=== PATIENT | male | born 1960 | race Caucasian/White ===

== ENCOUNTER 2017-04-09 13:38 | Emergency (ER) | payer OTHER, MEDICAID ==
[2017-04-09 13:46] VITALS: TEMP 98.1
[2017-04-09] MEDS ORDERED: ONDANSETRON 4 MG/2 ML VIAL IVP ONE (13:50)
[2017-04-09] MEDS ORDERED: ONDANSETRON 4 MG/2 ML VIAL ONE (13:50)
[2017-04-09] MEDS ORDERED: NS 1,000 ML IV ONE ×2 (13:50→14:34)
[2017-04-09] MEDS ORDERED: HYDROmorphONE/DILAUDID 1 MG/ML SYR ONE (13:50)
[2017-04-09] MEDS ORDERED: fentaNYL 100 MCG/2 ML INJ IVP ONE (13:50)
--- NOTE | 2017-04-09 13:51 | EDPHY ---
H & P Time Seen by Provider: 04/09/17 13:40 HPI/ROS: CHIEF COMPLAINT: Right abdominal and flank pain HISTORY OF PRESENT ILLNESS: Patient had severe pain starting around 11:00 a.m.. He was seen in the clinic and then was sent to CT imaging and subsequently presents here with severe pain. He states that he thought "I was not going to make it." Patient presents with severe right abdominal pain radiating to his flank with a history of dysuria and pain in his penis for the past 2 weeks. Not associated with trauma or recent fall or injury. No vomiting or diarrhea. Not better or worse with position. REVIEW OF SYSTEMS: Eye: no change in vision ENT: no sore throat Cardiac: no chest pain or syncope Pulmonary: no cough or SOB Abdomen: HPI Musculoskeletal: No recent trauma, no extremity pain. Skin: Very diaphoretic Neuro: no headache Constitutional: no fever : HPI A comprehensive 10 point review of systems is otherwise negative aside from elements mentioned in the history of present illness. PAST MEDICAL HISTORY: Depression, bipolar, renal colic Social history: [facility] patient, primary care is [facility] General Appearance: Alert, standing and moving by the bedside, looks uncomfortable. Eyes: No scleral icterus. ENT, Mouth: Normal mucous membranes. Respiratory: Normal respiratory effort, breath sounds equal, lungs are clear to auscultation. Cardiovascular: Regular rate and rhythm. Gastrointestinal: Abdomen is soft and non tender. No pulsatile masses, male is normal. No hernia. Neurological: Alert and oriented x3. Normally conversant. Face symmetric, normal movement and sensation in all extremities. Skin: Diaphoretic Musculoskeletal: No peripheral edema and no joint swelling. Psychiatric: Not agitated. Emergency Department course/MDM: I-STAT, fentanyl 100 mcg IV and Zofran 4 mg IV, Toradol if normal creatinine. 1430: Imaging disc not available but faxed report reviewed by myself at this time shows "4 mm obstructing calculus. In the distal right ureter with mild right-sided hydroureter" . 1500: Improved, still having pain, Toradol and IV lidocaine. 1605: Improving, less pain. 1735: Re-evaluated. Feels better, feels stable for discharge. Smoking Status: Never smoked Constitutional: Initial Vital Signs Temperature (C) 36.7 C 04/09/17 13:40 Heart Rate 58 L 04/09/17 13:40 Respiratory Rate 20 04/09/17 13:40 Blood Pressure 144/94 H 04/09/17 13:40 O2 Sat (%) 95 04/09/17 13:40 O2 Delivery Mode Room Air O2 (L/minute) 2 Allergies/Adverse Reactions: lithium [[place]] Allergy (Mild, Verified 04/09/17 13:44) Penicillins Allergy (Unknown, Verified 04/09/17 13:44) as child Home Medications: Medication Instructions Recorded lamoTRIgine [LamICTAL 100 MG (RX)] 200 mg PO 01/20/13 Antidepressant Patch 04/09/17 oxyCODONE/APAP 5/325 [Percocet] 1 - 2 tab PO Q4-6PRN PRN #11 tab 04/09/17 Medical Decision Making Differential Diagnosis: Differential considered including but not limited to UTI, renal colic, aortic aneurysm, appendicitis. - Data Points Laboratory Results: 04/09/17 04/09/17 16:10 14:24 POC Hgb 13.9 gm/dL gm/dL (13.7-17.5) POC Hct 41 % % (40-51) POC Sodium 143 mEq/L mEq/L (134-144) POC Potassium 4.0 mEq/L mEq/L (3.3-5.0) POC Chloride 108 mEq/L mEq/L (97-110) POC BUN 9 mg/dL mg/dL (7-23) POC Creatinine 1.3 mg/dL mg/dL (0.7-1.3) POC Glucose 140 mg/dL H mg/dL (70-100) Urine RBC 10-15 /hpf H /hpf (0-3) Urine WBC 10-15 /hpf H /hpf (0-3) Ur Epithelial Cells NONE SEEN /lpf /lpf (NONE-1+) Calcium Oxalate Crystal PRESENT /hpf /hpf (NONE-1+) Urine Bacteria NONE SEEN /hpf /hpf (NONE SEEN) Urine Mucus TRACE /lpf /lpf (NONE-1+) Urine Yeast NONE SEEN /hpf /hpf (NONE SEEN) Medications Given: Discontinued Medications Fentanyl (Sublimaze) 100 mcg IVP EDNOW ONE Stop: 04/09/17 13:51 Last Admin: 04/09/17 14:36 Dose: Not Given Hydromorphone HCl (Dilaudid) 1 mg IVP EDNOW ONE Stop: 04/09/17 14:08 Last Admin: 04/09/17 14:23 Dose: 1 mg Sodium Chloride (Ns) 1,000 mls @ 0 mls/hr IV ONCE ONE; Wide Open PRN Reason: Protocol Stop: 04/09/17 13:51 Last Admin: 04/09/17 14:23 Dose: 1,000 mls Sodium Chloride (Ns) 1,000 mls @ 0 mls/hr IV ONCE ONE; Wide Open PRN Reason: Protocol Stop: 04/09/17 14:35 Last Admin: 04/09/17 15:01 Dose: 1,000 mls Lidocaine HCl 100 mg/ Sodium (Chloride) 110 mls @ 600 mls/hr IV EDNOW ONE Stop: 04/09/17 14:44 Last Admin: 04/09/17 15:01 Dose: 110 mls Ketorolac Tromethamine (Toradol) 30 mg IVP EDNOW ONE Stop: 04/09/17 14:35 Last Admin: 04/09/17 14:59 Dose: 30 mg Ondansetron HCl (Zofran) 4 mg IVP EDNOW ONE Stop: 04/09/17 13:51 Last Admin: 04/09/17 14:23 Dose: 4 mg Point of Care Test Results: 04/09/17 14:24 POC Sodium 143 POC Potassium 4.0 POC Chloride 108 POC BUN 9 POC Creatinine 1.3 POC Glucose 140 H Departure - Departure Disposition: Home, Routine, Self-Care Clinical Impression: Renal colic on right side Condition: Good Instructions: Renal Colic (ED) Additional Instructions: Ibuprofen 600 mg by mouth every 6 hours as needed for pain over the next 3 days. Please follow-up with your primary care clinic early next week. Return for pain not controlled by home medications. Referrals: Renee Fink MD [Primary Care Provider] - As per Instructions Prescriptions: oxyCODONE/APAP 5/325 [Percocet] 1 - 2 tab PO Q4-6PRN PRN #11 tab PRN Reason: Pain
[2017-04-09] MEDS ORDERED: HYDROmorphONE/DILAUDID 1 MG/ML SYR IVP ONE (14:07)
[2017-04-09] MEDS ORDERED: LIDOCAINE 1% 100 MG in NS 100 ML IV ONE (14:34)
[2017-04-09] MEDS ORDERED: KETOROLAC 30 MG/1 ML SDV IVP ONE (14:34)
[2017-04-09 16:30] LABS: BACTERIA NONE SEEN /hpf (NONE SEEN); MUCUS TRACE /lpf (NONE-1+); YEAST NONE SEEN /hpf (NONE SEEN)
[2017-04-09 17:50] VITALS: BP 136/88; PULSE 60; RESP 18; O2SAT 93
== END 2017-04-09 17:51 | disposition home or self-care (01) ==
DX: N23 Unspecified renal colic (principal)
CPT/HCPCS: 96361; 96374; 96375; 99284; J1170; J1885; J2405; 82947-QW

== ENCOUNTER 2017-04-09 18:43 | Observation (INO) | payer OTHER, MEDICAID ==
--- NOTE | 2017-04-09 19:05 | EDPHY ---
H & P Time Seen by Provider: 04/09/17 18:45 HPI/ROS: CHIEF COMPLAINT: Right abdominal and flank pain HISTORY OF PRESENT ILLNESS: Patient had severe pain starting around 11:00 a.m.. He was seen in the clinic and then was sent to CT imaging and subsequently presents here with severe pain. He states that he thought "I was not going to make it." Patient presents with severe right abdominal pain radiating to his flank with a history of dysuria and pain in his penis for the past 2 weeks. Not associated with trauma or recent fall or injury. No vomiting or diarrhea. Not better or worse with position. He was treated in the emergency department earlier today by myself and discharged feeling a lot better with no pain. About 30 minutes prior to my evaluation this time he started having pain in the same side on the right identical to previous. I-STAT creatinine was 1.3 and urinalysis showed 10-15 RBC and 10-15 WBC. REVIEW OF SYSTEMS: Eye: no change in vision ENT: no sore throat Cardiac: no chest pain or syncope Pulmonary: no cough or SOB Abdomen: HPI Musculoskeletal: No recent trauma, no extremity pain. Skin: Very diaphoretic Neuro: no headache Constitutional: no fever : HPI A comprehensive 10 point review of systems is otherwise negative aside from elements mentioned in the history of present illness. PAST MEDICAL HISTORY: Depression, bipolar, renal colic Social history: [facility] patient, primary care is [facility] General Appearance: Alert, lying down, uncomfortable. Eyes: No scleral icterus. ENT, Mouth: Normal mucous membranes. Respiratory: Normal respiratory effort, breath sounds equal, lungs are clear to auscultation. Cardiovascular: Regular rate and rhythm. Gastrointestinal: Abdomen is soft and non tender. No pulsatile masses, male is normal. No hernia. Neurological: Alert and oriented x3. Normally conversant. Face symmetric, normal movement and sensation in all extremities. Skin: Diaphoretic Musculoskeletal: No peripheral edema and no joint swelling. Psychiatric: Not agitated. Emergency Department course/MDM: Patient received Toradol and IV lidocaine and Dilaudid in his earlier visit. Dilaudid 0.5 mg IV, Ativan 1 mg IV. Normal saline 1000 mL is, Tylenol 1 g. Likely need to be admitted for pain control with recurrent pain from renal colic not adequately treated as outpatient Smoking Status: Never smoked Constitutional: Initial Vital Signs Temperature (C) 36.9 C 04/09/17 18:45 Heart Rate 62 04/09/17 18:45 Respiratory Rate 16 04/09/17 18:45 Blood Pressure 158/102 H 04/09/17 18:45 O2 Sat (%) 97 04/09/17 18:45 O2 Delivery Mode Room Air Allergies/Adverse Reactions: lithium [[place]] Allergy (Mild, Verified 04/09/17 18:44) Penicillins Allergy (Unknown, Verified 04/09/17 18:44) as child Home Medications: Medication Instructions Recorded lamoTRIgine [LamICTAL 100 MG (RX)] 200 mg PO 01/20/13 Antidepressant Patch 04/09/17 oxyCODONE/APAP 5/325 [Percocet] 1 - 2 tab PO Q4-6PRN PRN #11 tab 04/09/17 Medical Decision Making Differential Diagnosis: Differential considered including but not limited to renal colic, appendicitis, sbo, aneurysm or dissection. - Data Points Laboratory Results: Laboratory Results 04/09/17 19:34 04/09/17 19:34 04/09/17 04/09/17 19:34 19:34 WBC 10.81 10^3/uL H 10^3/uL (3.80-9.50) RBC 4.09 10^6/uL L 10^6/uL (4.40-6.38) Hgb 12.7 g/dL L g/dL (13.7-17.5) Hct 37.1 % L % (40.0-51.0) MCV 90.7 fL fL (81.5-99.8) MCH 31.1 pg pg (27.9-34.1) MCHC 34.2 g/dL g/dL (32.4-36.7) RDW 15.4 % H % (11.5-15.2) Plt Count 175 10^3/uL 10^3/uL (150-400) MPV 10.0 fL fL (8.7-11.7) Neut % (Auto) 82.1 % H % (39.3-74.2) Lymph % (Auto) 10.2 % L % (15.0-45.0) [place] % (Auto) 6.2 % % (4.5-13.0) Eos % (Auto) 0.6 % % (0.6-7.6) Baso % (Auto) 0.4 % % (0.3-1.7) Nucleat RBC Rel Count 0.3 % H % (0.0-0.2) Absolute Neuts (auto) 8.89 10^3/uL H 10^3/uL (1.70-6.50) Absolute Lymphs (auto) 1.10 10^3/uL 10^3/uL (1.00-3.00) Absolute Monos (auto) 0.67 10^3/uL 10^3/uL (0.30-0.80) Absolute Eos (auto) 0.06 10^3/uL 10^3/uL (0.03-0.40) Absolute Basos (auto) 0.04 10^3/uL 10^3/uL (0.02-0.10) Absolute Nucleated RBC 0.03 10^3/uL H 10^3/uL (0-0.01) Immature Gran % 0.5 % % (0.0-1.1) Immature Gran # 0.05 10^3/uL 10^3/uL (0.00-0.10) Sodium 139 mEq/L mEq/L (134-144) Potassium 5.0 mEq/L mEq/L (3.5-5.2) Chloride 109 mEq/L mEq/L (97-110) Carbon Dioxide 20 mEq/l L mEq/l (22-31) Anion Gap 10 mEq/L mEq/L (8-16) BUN 9 mg/dL mg/dL (7-23) Creatinine 1.1 mg/dL mg/dL (0.7-1.3) Estimated GFR > 60 Glucose 108 mg/dL H mg/dL (70-100) Calcium 8.9 mg/dL mg/dL (8.5-10.4) Medications Given: Discontinued Medications Acetaminophen (Tylenol) 975 mg PO EDNOW ONE Stop: 04/09/17 19:07 Last Admin: 04/09/17 19:36 Dose: 975 mg Hydromorphone HCl (Dilaudid) 0.5 mg IVP EDNOW ONE Stop: 04/09/17 19:07 Last Admin: 04/09/17 19:36 Dose: 0.5 mg Hydromorphone HCl (Dilaudid) 1 mg PO EDNOW ONE Stop: 04/09/17 20:14 Last Admin: 04/09/17 20:23 Dose: 1 mg Sodium Chloride (Ns) 1,000 mls @ 0 mls/hr IV ONCE ONE; Wide Open PRN Reason: Protocol Stop: 04/09/17 19:07 Last Admin: 04/09/17 19:36 Dose: 1,000 mls Lorazepam (Ativan Injection) 1 mg IVP EDNOW ONE Stop: 04/09/17 19:07 Last Admin: 04/09/17 19:36 Dose: 1 mg Departure - Departure Disposition: [facility] Inpatient Acute Clinical Impression: Renal colic on right side Condition: Good
[2017-04-09] MEDS ORDERED: NS 1,000 ML IV ONE (19:06)
[2017-04-09] MEDS ORDERED: ACETAMINOPHEN 325 MG TAB PO ONE (19:06)
[2017-04-09] MEDS ORDERED: HYDROmorphONE/DILAUDID 1 MG/ML SYR IVP ONE (19:06)
[2017-04-09] MEDS ORDERED: LORazepam 2 MG/ML INJ IVP ONE (19:06)
[2017-04-09 19:40] LABS: % IMMATURE GRANULYOCYTES 0.5 % (0.0-1.1); ABSOLUTE IMMATURE GRANULOCYTES 0.05 10^3/uL (0.00-0.10); ABSOLUTE NRBC COUNT 0.03 10^3/uL (0-0.01); ADD DIFF? NO; ADD MORPH? NO; ADD SCAN? NO; ATYPICAL LYMPHOCYTE FLAG 0 (0-99); FRAGMENT RBC FLAG 0 (0-99); HEMATOCRIT 37.1 % (40.0-51.0); HEMOGLOBIN 12.7 g/dL (13.7-17.5); LEFT SHIFT FLG 10 (0-99); LIPEMIA HEMOLYSIS FLAG 90 (0-99); MEAN CELL HEMOGLOBIN 31.1 pg (27.9-34.1); MEAN CELL HEMOGLOBIN CONCENTR. 34.2 g/dL (32.4-36.7); MEAN CELL VOLUME 90.7 fL (81.5-99.8); NRBC-AUTO% 0.3 % (0.0-0.2); PLATELET CLUMPS FLAG 10 (0-99); PLATELET COUNT 175 10^3/uL (150-400); RED BLOOD CELL COUNT 4.09 10^6/uL (4.40-6.38); RED CELL DISTRIBUTION WIDTH 15.4 % (11.5-15.2)
[2017-04-09 19:52] LABS: ANION GAP 10 mEq/L (8-16); CALCIUM 8.9 mg/dL (8.5-10.4); CARBON DIOXIDE 20 mEq/l (22-31); CHLORIDE 109 mEq/L (97-110); CREATININE 1.1 mg/dL (0.7-1.3); GLOMERULAR FILTRATION RATE > 60; GLUCOSE 108 mg/dL (70-100); SODIUM 139 mEq/L (134-144)
[2017-04-09] MEDS ORDERED: HYDROmorphONE/DILAUDID 2 MG TAB PO ONE (20:13)
[2017-04-09] MEDS ORDERED: HYDROmorphONE/DILAUDID 1 MG/ML SYR IVP PRN (22:24)
[2017-04-09] MEDS ORDERED: LORazepam 0.5 MG TAB PO PRN (22:24)
[2017-04-09] MEDS ORDERED: oxyCODONE IR 5 MG TAB PO PRN (22:24)
--- NOTE | 2017-04-09 22:36 | PDGENHP ---
History and Physical - Chief Complaint R flank pain - History of Present Illness Patient is a 48-year-old male with a history of bipolar/depression disorder, previous nephrolithiasis requiring lithotripsy who presents to the ED with complaint of right flank pain. Patient states his symptoms began last night with mild intermittent right-sided discomfort that interrupted his ability to sleep through the night. This morning the pain had begun to intensify began was waxing and waning, up to 5/10 in intensity. While at work, he began to experience worsening right flank pain, called his PMD office and was evaluated in the walk-in [facility]. while in the clinic, he had intense 8 to 10/[address] of the abdomen and pelvis was obtained and revealed right ureteral stone. Given the intensity of his symptoms, he was sent to the ED for further evaluation at around 1:30 p.m. he was given symptomatic treatment of his pain with significant improvement of his symptoms and then discharged home. However on arrival home, patient's pain again intensified and he decided to come back to the ED for further evaluation. Throughout this course, patient denies any obvious fevers, chills although he does report intermittent nausea when the pain intensifies. He also states for the past 2 weeks he has been having symptoms of incomplete voiding and dysuria at and avoid but no obvious hematuria. Patient reports around 2002 he had similar symptoms, with intense flank pain, and was determined to have and obstructing renal stone. He states he was hospitalized at that time and underwent lithotripsy with ureteral stent placement. On arrival to the ED this evening, patient was afebrile hemodynamically stable. Labs revealed mild leukocytosis, normal BMP. He was given symptom control and then admitted to the hospitalist service for further management. History Information - Allergies/Home Medication List Allergies/Adverse Reactions: lithium [[place]] Allergy (Mild, Verified 04/09/17 18:44) Penicillins Allergy (Unknown, Verified 04/09/17 18:44) as child Home Medications: lamoTRIgine [LamICTAL 100 MG (RX)] 200 mg PO 01/20/13 [Last Taken Unknown] Antidepressant Patch 04/09/17 [Last Taken Unknown] I have personally reviewed and updated: family history, medical history, social history, surgical history - Past Medical History Additional medical history: Bipolar disorder. depression. history of nephrolithiasis (2002) - Surgical History Additional surgical history: Lithotripsy. cholecystectomy. knee arthroscopy. rotator cuff. hypospadia correction - Family History Positive for: non-pertinent - Social History Smoking Status: Never smoked Alcohol Use: Rarely Drug Use: None Additional social history: patient lives alone, is independent in ADLs, works as a courrier Review of Systems ROS: 10pt was reviewed & negative except for what was stated in HPI & below Physical Exam Temp Pulse Resp BP Pulse Ox 36.9 C 70 14 129/80 H 94 04/09/17 20:48 04/09/17 20:48 04/09/17 20:48 04/09/17 20:48 04/09/17 20:48 Constitutional: no apparent distress, appears nourished, not in pain Eyes: PERRL, anicteric sclera, EOMI Ears, Nose, Mouth, Throat: moist mucous membranes, hearing normal, ears appear normal, no oral mucosal ulcers Cardiovascular: regular rate and rhythym, no murmur, rub, or gallop, pulses symmetric bilaterally, No JVD, No edema Peripheral Pulses: 2+: dorsalis-pedis (R), dorsalis-pedis (L) Respiratory: no respiratory distress, no rales or rhonchi, clear to auscultation Gastrointestinal: normoactive bowel sounds, soft, non-tender abdomen, no palpable masses, No guarding, No rebound, No distension Genitourinary: no bladder fullness, no bladder tenderness Skin: warm, normal color, no rashes or abrasions, no fluctuance, no induration, No mottled Musculoskeletal: full muscle strength, no muscle tenderness, normal joint ROM, no joint effusions Neurologic: AAOx3, sensation intact bilaterally, CN II-XII Intact, No weakness, No numbness, No facial droop Psychiatric: interacting appropriately, not anxious, not encephalopathic, thought process linear Lab Data & Imaging Review 04/09/17 19:34 04/09/17 19:34 WBC 10.81 10^3/uL (3.80-9.50) H 04/09/17 19:34 RBC 4.09 10^6/uL (4.40-6.38) L 04/09/17 19:34 Hgb 12.7 g/dL (13.7-17.5) L 04/09/17 19:34 Hct 37.1 % (40.0-51.0) L 04/09/17 19:34 MCV 90.7 fL (81.5-99.8) 04/09/17 19:34 MCH 31.1 pg (27.9-34.1) 04/09/17 19:34 MCHC 34.2 g/dL (32.4-36.7) 04/09/17 19:34 RDW 15.4 % (11.5-15.2) H 04/09/17 19:34 Plt Count 175 10^3/uL (150-400) 04/09/17 19:34 MPV 10.0 fL (8.7-11.7) 04/09/17 19:34 Neut % (Auto) 82.1 % (39.3-74.2) H 04/09/17 19:34 Lymph % (Auto) 10.2 % (15.0-45.0) L 04/09/17 19:34 [place] % (Auto) 6.2 % (4.5-13.0) 04/09/17 19:34 Eos % (Auto) 0.6 % (0.6-7.6) 04/09/17 19:34 Baso % (Auto) 0.4 % (0.3-1.7) 04/09/17 19:34 Nucleat RBC Rel Count 0.3 % (0.0-0.2) H 04/09/17 19:34 Absolute Neuts (auto) 8.89 10^3/uL (1.70-6.50) H 04/09/17 19:34 Absolute Lymphs (auto) 1.10 10^3/uL (1.00-3.00) 04/09/17 19:34 Absolute Monos (auto) 0.67 10^3/uL (0.30-0.80) 04/09/17 19:34 Absolute Eos (auto) 0.06 10^3/uL (0.03-0.40) 04/09/17 19:34 Absolute Basos (auto) 0.04 10^3/uL (0.02-0.10) 04/09/17 19:34 Absolute Nucleated RBC 0.03 10^3/uL (0-0.01) H 04/09/17 19:34 Immature Gran % 0.5 % (0.0-1.1) 04/09/17 19:34 Immature Gran # 0.05 10^3/uL (0.00-0.10) 04/09/17 19:34 Sodium 139 mEq/L (134-144) 04/09/17 19:34 Potassium 5.0 mEq/L (3.5-5.2) 04/09/17 19:34 Chloride 109 mEq/L (97-110) 04/09/17 19:34 Carbon Dioxide 20 mEq/l (22-31) L 04/09/17 19:34 Anion Gap 10 mEq/L (8-16) 04/09/17 19:34 BUN 9 mg/dL (7-23) 04/09/17 19:34 Creatinine 1.1 mg/dL (0.7-1.3) 04/09/17 19:34 Estimated GFR > 60 04/09/17 19:34 Glucose 108 mg/dL (70-100) H 04/09/17 19:34 Calcium 8.9 mg/dL (8.5-10.4) 04/09/17 19:34 Visualized and Interpreted imaging results: Yes Interpretation: CT abd/pelvis: 4mm R ureteral stone at the UVJ with mild R hydroureter/hydronephrosis; 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 Outpatient CT abdomen and pelvis revealed 4 mm right ureteral stone at the UVJ with mild associated hydronephrosis. He is being admitted for further pain control of his renal colic. Plan: # R nephrolithiasis Patient's symptoms are consistent with renal colic of nephrolithiasis. Outpatient CT (report in paper chart) does reveal a 4mm R ureteral stone at the UVJ. Full UA pending, but no signs/symptoms of associated infection. Although CT reads some mild associated hydronephrosis, renal function appears to be at his baseline. Will check UA, trend BMP, continue aggressive IVF hydration, dose tamsulosin and treat symptoms as needed. Will also strain urine for stone retrieval. # depression/bipolar disorder Patient states this has been poorly controlled recently, but is coping with this by having bi-weekly, scheduled therapy sessions, which has helped his symptoms. States mood is stable. Will continue home meds. # dispo: admit to observation status # gen: regular diet DVTppx: low risk Full code
[2017-04-09] MEDS: TAMSULOSIN HCL 0.4 MG CAP PO SCH (22:58)
[2017-04-09] MEDS: NS 1,000 ML IV SCH (22:58)
[2017-04-09] MEDS: KETOROLAC 15 MG/1 ML SDV IVP SCH (22:59)
[2017-04-09] MEDS: ONDANSETRON DISINTEGRATING 4 MG TAB PO PRN (23:02)
[2017-04-09 23:47] VITALS: RESP 16
[2017-04-10] MEDS: ONDANSETRON 4 MG/2 ML VIAL IVP PRN ×2 (00:20→05:15)
[2017-04-10] MEDS: ONDANSETRON DISINTEGRATING 4 MG TAB PO PRN (02:11)
[2017-04-10] MEDS: ACETAMINOPHEN 500 MG TAB PO PRN ×2 (02:15→08:05)
[2017-04-10 03:20] LABS: COLOR YELLOW; LEUKOCYTE ESTERASE,URINE TRACE (NEGATIVE); NITRITE,URINE NEGATIVE (NEGATIVE)
[2017-04-10 03:31] LABS: MUCUS TRACE /lpf (NONE-1+)
[2017-04-10] MEDS: KETOROLAC 15 MG/1 ML SDV IVP SCH ×2 (05:05→13:39)
[2017-04-10] MEDS: NS 1,000 ML IV SCH ×2 (05:11→12:39)
[2017-04-10] MEDS: TAMSULOSIN HCL 0.4 MG CAP PO SCH (08:05)
[2017-04-10 08:10] LABS: % IMMATURE GRANULYOCYTES 0.5 % (0.0-1.1); ABSOLUTE IMMATURE GRANULOCYTES 0.05 10^3/uL (0.00-0.10); ADD DIFF? NO; ADD MORPH? NO; ADD SCAN? NO; ATYPICAL LYMPHOCYTE FLAG 0 (0-99); FRAGMENT RBC FLAG 0 (0-99); HEMATOCRIT 33.4 % (40.0-51.0); HEMOGLOBIN 11.3 g/dL (13.7-17.5); LEFT SHIFT FLG 0 (0-99); LIPEMIA HEMOLYSIS FLAG 90 (0-99); MEAN CELL HEMOGLOBIN CONCENTR. 33.8 g/dL (32.4-36.7); MEAN CELL VOLUME 91.5 fL (81.5-99.8); MEAN PLATELET VOLUME 10.3 fL (8.7-11.7); PLATELET CLUMPS FLAG 0 (0-99); PLATELET COUNT 167 10^3/uL (150-400); RED BLOOD CELL COUNT 3.65 10^6/uL (4.40-6.38); RED CELL DISTRIBUTION WIDTH 15.4 % (11.5-15.2)
[2017-04-10 08:20] LABS: INR 1.12 (0.83-1.16); PROTIME(PATIENT) 14.3 SEC (12.0-15.0)
[2017-04-10 08:21] LABS: APTT 27.6 SEC (23.0-38.0)
[2017-04-10 08:23] LABS: ANION GAP 7 mEq/L (8-16); CALCIUM 8.6 mg/dL (8.5-10.4); CARBON DIOXIDE 22 mEq/l (22-31); CHLORIDE 109 mEq/L (97-110); GLOMERULAR FILTRATION RATE > 60; GLUCOSE 125 mg/dL (70-100); MAGNESIUM 1.8 mg/dL (1.6-2.3); POTASSIUM 4.1 mEq/L (3.5-5.2); SODIUM 138 mEq/L (134-144)
[2017-04-10] MEDS ORDERED: HYDROCODONE/APAP 5/325 TAB PO PRN (09:25)
--- NOTE | 2017-04-10 10:14 | HOSPPROG ---
Hospitalist Progress Note Assessment/Plan: 56-year-old male new to my care with a history of bipolar /depression, previous nephrolithiasis, who presents to the ED with complaint of right flank pain. Outpatient CT abdomen and pelvis revealed 4 mm right ureteral stone at the UVJ with mild associated hydronephrosis. He is being admitted for further pain control of his renal colic. Plan: # R nephrolithiasis -I discussed case with Dr. Aaron who will see him in consultation -strain urine -abd u/s and kub -cont pain meds #vomiting possibly secondary to opiates -dc oxy and trail norco # depression/bipolar disorder Patient states this has been poorly controlled recently, but is coping with this by having bi-weekly, scheduled therapy sessions, which has helped his symptoms. States mood is stable. Will continue home meds. dispo: possible dc later today if not vomiting Subjective: reports nausea. continues to have some flank pain. denies passing stone, but hasn't strained urine Objective: Vital Signs Temp Pulse Resp BP Pulse Ox 36.6 C 80 16 135/71 H 93 04/10/17 04:00 04/10/17 08:00 04/10/17 08:00 04/10/17 08:00 04/10/17 08:00 Laboratory Results 04/10/17 07:53 04/10/17 07:53 04/09/17 04/10/17 04/11/17 05:59 05:59 05:59 Intake Total 2100 Output Total 500 500 Balance 1600 -500 PT 14.3 SEC (12.0-15.0) 04/10/17 07:53 INR 1.12 (0.83-1.16) 04/10/17 07:53 - Physical Exam Constitutional: no apparent distress, appears nourished, not in pain Ears, Nose, Mouth, Throat: moist mucous membranes, hearing normal, ears appear normal, no oral mucosal ulcers Respiratory: no respiratory distress, no rales or rhonchi, clear to auscultation Neurologic: AAOx3, CN II-XII Intact, No facial droop ICD10 Worksheet Patient Problems: Problems Problem Status Onset Renal colic on right side Acute
[2017-04-10 12:20] VITALS: BP 123/73; PULSE 77; TEMP 98.2; O2SAT 92
--- NOTE | 2017-04-10 15:28 | GDS ---
[f rep st] DISCHARGE SUMMARY PREOPERATIVE DIAGNOSIS: Right flank pain with right 4 mm mildly obstructing kidney stone. HISTORY OF PRESENT ILLNESS: A 56-year-old male with a history of bipolar depressive disorder, prior nephrolithiasis, requiring lithotripsy, presented to the emergency room with right flank pain. He has done well since admission to the hospital. He did have some nausea, that is much improved now. His pain is 4/10, and I believe he will do well on discharged home, considering that his x-ray this morning, notes the stone down near the UVJ, and the ultrasound notes mild hydronephrosis only, with a right ureteral jet noted, meaning it is not obstructing his ureter. I recommend discharge home o n tamsulosin b.i.d., narcotic pain scripts should be given, to be taken as needed, and we will see h im is in our office as an outpatient. ALLERGIES: [place], penicillin. HOME MEDICATIONS: Lamotrigine and an antidepressant patch. PAST MEDICAL HISTORY: Significant for bipolar disorder, depression, history of nephrolithiasis in 2 003. SURGICAL HISTORY: Lithotripsy, cholecystectomy, knee arthroscopy, rotator cuff and hypospadia corre ction. FAMILY HISTORY: Non-pertinent. SOCIAL HISTORY: Never smoked. Alcohol use: Rarely. Street drugs: None. Additional social histo ry is noncontributory. REVIEW OF SYSTEMS: A 10-point review of systems is otherwise negative, as stated in the HPI. PHYSICAL EXAMINATION: VITAL SIGNS: His temperature is afebrile, pulse is 70, respiratory rate 14, blood pressure 129/80, pulse 94. CONSTITUTIONAL: No apparent distress. Appears well nourished. N ot in pain or distress. HEENT: Normocephalic, atraumatic. CARDIOVASCULAR: No JVD, no lower extre mity edema. No cyanosis. RESPIRATORY: No respiratory distress. No accessory muscle use. GENITOURINARY: Bladder is nontender. No fullness, nonpalpable bladder. SKIN: No rashes or lesions. MUSCULOSKELETAL: Moving all 4 extremities well. NEUROLOGIC: Alert a nd oriented x3. Cranial nerves 2-12 grossly intact. No weakness, numbness. PSYCHIATRIC: Normal m ood and affect. Thought process: Linear. LABS: White count is 10.8, H and H is 12 and 37. ASSESSMENT AND PLAN: 1. Okay for discharge home. 2. Discharge home with tamsulosin b.i.d. and Percocet. 3. See in my office as an outpatient. Please provide phone number [phone] to the patient. /[id number]/MODL
== END 2017-04-10 16:38 | disposition home or self-care (01) ==
LOC: F3N 20:46
PROVIDERS: ADMIT Internal Medicine; ATTEND Urology
DX: N13.2 Hydronephrosis with renal and ureteral calculous obstruction (principal); F31.9 Bipolar disorder, unspecified
CPT/HCPCS: 74000; 76770; G0378; J1170; J1885; J2060; J2405; 96374

== ENCOUNTER 2017-09-02 08:07 | Emergency (ER) | payer OTHER, MEDICAID ==
[2017-09-02 08:17] VITALS: RESP 18
[2017-09-02 08:38] LABS: PLATELET COUNT 224 10^3/uL (150-400)
[2017-09-02] MEDS ORDERED: NS 1,000 ML IV ONE ×2 (08:41)
--- NOTE | 2017-09-02 08:47 | EDPHY ---
H & P Time Seen by Provider: 09/02/17 08:30 HPI/ROS: CHIEF COMPLAINT: Leg cramping HISTORY OF PRESENT ILLNESS: 56-year-old male presents via EMS with bilateral leg cramping. Over the last 2 weeks had intermittent leg cramping. The cramping occurs primarily when he 1st gets out of bed in the morning. The cramping was severe this morning and he was unable to walk because cramping in his inner thighs. The cramping has now resolved. The cramping is sometimes in his thighs and sometimes in his lower legs. The cramping does not tend to occur with exertion. He also has a 2 week history of urinary hesitancy and frequency. He saw his primary care physician Dr. Fink at [facility]. Urinalysis reportedly normal. A CT scan of the abdomen and pelvis was performed yesterday, results unknown. REVIEW OF SYSTEMS: Constitutional: No fever, no chills Eyes: No visual changes ENT: No sore throat Respiratory: No cough, no shortness of breath Cardiac: No chest pain Gastrointestinal: No nausea, no vomiting, no abdominal pain Skin: No rash Neurological: No headache, no numbness, no weakness Psychiatric: No depression Past Medical/Surgical History: Bipolar disorder Kidney stones Social History: No recent alcohol PCP: Dr. Fink Smoking Status: Never smoked Physical Exam: General Appearance: Alert, pleasant, does not appear in pain Eyes: Pupils equal and round, no conjunctival pallor or injection ENT, Mouth: Mucous membranes moist Neck: Normal inspection Respiratory: Lungs are clear to auscultation Cardiovascular: Regular rate and rhythm Gastrointestinal: Abdomen is soft and nontender Neurological: A&O, nonfocal exam Skin: Warm and dry, no rash Extremities: normal inspection, no tenderness, no cramping, range of motion of the lower extremities without pain Vascular: Dorsalis pedis pulses 2+ bilaterally, capillary refill brisk Psychiatric: Mood and affect normal Constitutional: Initial Vital Signs Temperature (C) 36.7 C 09/02/17 08:13 Heart Rate 79 09/02/17 08:13 Respiratory Rate 18 09/02/17 08:13 Blood Pressure 146/93 H 09/02/17 08:13 O2 Sat (%) 97 09/02/17 08:13 O2 Delivery Mode Room Air Allergies/Adverse Reactions: lithium [[place]] Allergy (Mild, Verified 04/09/17 18:44) Penicillins Allergy (Unknown, Verified 04/09/17 18:44) as child Home Medications: Medication Instructions Recorded lamoTRIgine [LamICTAL 100 MG (RX)] 200 mg PO 01/20/13 Methylphenidate 09/02/17 Medical Decision Making ED Course/Re-evaluation: This patient presents with ongoing intermittent leg cramping, severe this morning. No new medications and no evidence of dehydration. I will check his electrolytes. IV normal saline given. No evidence of vascular compromise. Old records reviewed, including CT scan of the abdomen pelvis performed yesterday. CT scan reveals nephrolithiasis and diverticulosis, no acute pathology. Continues to feel well, no cramping. IVF infusing. Electrolytes normal. Ambulates well. Will d/c home. f/u PCP. Differential Diagnosis: includes though not limited to claudication, electrolyte abnormality, dehydration. - Data Points Laboratory Results: Laboratory Results 09/02/17 08:25 09/02/17 08:25 Medications Given: Discontinued Medications Sodium Chloride (Ns) 1,000 mls @ 0 mls/hr IV ONCE ONE; Wide Open PRN Reason: Protocol Stop: 09/02/17 08:42 Last Admin: 09/02/17 09:55 Dose: 1,000 mls Ketorolac Tromethamine (Toradol) 30 mg IVP EDNOW ONE Stop: 09/02/17 09:52 Last Admin: 09/02/17 09:55 Dose: 30 mg Departure - Departure Disposition: Home, Routine, Self-Care Clinical Impression: Bilateral leg cramps Condition: Good Instructions: Leg Cramps (ED) Additional Instructions: Drink plenty of fluids. Referrals: Renee Fink MD [Primary Care Provider] - 2-3 days, if not improved
[2017-09-02] MEDS ORDERED: KETOROLAC 30 MG/1 ML SDV IVP ONE ×2 (09:51)
[2017-09-02 10:26] VITALS: BP 133/65; PULSE 74; TEMP 98.4; O2SAT 95
== END 2017-09-02 10:26 | disposition home or self-care (01) ==
LOC: EDUNIT#
DX: R25.2 Cramp and spasm (principal); E86.9 Volume depletion, unspecified
CPT/HCPCS: 96361; 96374; 99284; J1885

== ENCOUNTER 2018-05-06 18:19 | Observation (INO) | payer OTHER, MEDICAID ==
[2018-05-06] MEDS ORDERED: ONDANSETRON 4 MG/2 ML VIAL IVP ONE (19:07)
--- NOTE | 2018-05-06 19:09 | EDPHY ---
General Time Seen by Provider: 05/06/18 19:08 Narrative: CHIEF COMPLAINT: Abdominal pain HISTORY OF PRESENT ILLNESS: Patient presents with complaints of abdominal pain. Location is lower abdomen. Onset is "been going on for a while," with acute worsening 4:00 a.m. This morning. Worse with movement and also when he took some Zofran earlier today. He attempted [id number] medications, exercising "healthy foods"without any significant changes. He has been seen by his primary care physician for this several times over the past month laboratory studies been no imaging. He thinks it may be related to his "gallbladder pain,"that he reports having ever since he had his gallbladder out in 2012. No fever chills. No vomiting or diarrhea. No bloody stools. No dark tarry stools. No other associated complaints or modifying factors. REVIEW OF SYSTEMS: Ten systems reviewed and are negative unless otherwise noted in the HPI PCP: Dr. Renee Fink SPECIALISTS: Urology, Dr. [facility] PAST MEDICAL HISTORY: Cholecystitis, depression, nephrolithiasis, bipolar disorder, OCD, borderline personality, self catheterization due to urinary stricture PAST SURGICAL HISTORY: Hypospadia correction, cholecystectomy SOCIAL HISTORY: Nonsmoker. Lives and works here independently. 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 Well-developed. Well-nourished. Head: normocephalic, atraumatic Eyes: Pupils equal and round, no conjunctival pallor or injection ENT, Mouth: Mucous membranes moist Neck: Normal inspection, supple, non-tender Respiratory: Lungs are clear to auscultation Cardiovascular: Regular rate and rhythm Gastrointestinal: Abdomen is soft and nondistended. There is tenderness in the lower quadrants bilaterally. No guarding. No tympany. No rigidity. Bowel sounds are appreciated in all 4 quadrants. No CVA tenderness. Neurological: A&O, nonfocal, normal gait Skin: Warm and dry, no rash. No petechiae or purpura on the exposed skin Extremities: Nontender, no pedal edema Psychiatric: Mood and affect normal DIFFERENTIAL DIAGNOSES: Including but not limited to diverticulitis, colitis, enteritis, appendicitis, pancreatitis, gastritis MDM: 7:05 p.m. Lower abdominal pain that has significantly worsened since 4:00 a.m. Today. His vital signs are within normal limits. He does not meet SIRS criteria but does have moderate tenderness in the lower abdomen. I do feel he warrants imaging of the abdomen pelvis with his previous history. I have ordered laboratory studies, CT scan, pain medication. He will be kept NPO further workup. He is in no acute distress. 7:25 p.m. CBC reveals leukocytosis with a differential pending. Liver function tests are within normal limits as is the lipase. CT pending. 8:18 p.m. Notified by radiologist Dr. Velez. CT scan reveals evidence of early appendicitis with no perforation, abscess or complication. Otherwise unremarkable scan. I re-evaluated the patient and confirmed his NPO status as 11:30 a.m. Of full meal. He says I had "a quarter of a rice cake when I got here."I will consult with general surgeon who is already in the emergency department evaluating another patient 8:30 p.m. Case discussed with general surgeon Dr. Morgan. He will evaluate the patient at this time. He has reviewed the CT images. 8:[address] Morgan has evaluated the patient and agrees with diagnosis of acute appendicitis. Plans to take the patient to the operating room shortly. He has requested IV clindamycin on-call to the OR due to penicillin allergy. The patient has been admitted to his service in stable condition. SUPERVISION: Patient was independently examined, but I discussed the case with my secondary supervising physician Dr. Vargas - Diagnostics Imaging Results: Imaging Impressions Abdomen CT 05/06/18 19:07 Impression: Early appendicitis. Results called and discussed with Hill Lundy, at 05/06/2018 20:17 General information for patients regarding this examination can be found at [email or web address]. If you have questions or comments about this report, please contact me at [phone] (hospital) or [phone] (cell). - History Smoking Status: Never smoked - Objective Vital Signs: Initial Vital Signs Temperature (C) 99.0 F 05/06/18 18:20 Heart Rate 98 05/06/18 18:20 Respiratory Rate 16 05/06/18 18:20 Blood Pressure 138/78 H 05/06/18 18:20 O2 Sat (%) 95 05/06/18 18:20 O2 Delivery Mode Room Air Allergies/Adverse Reactions: lithium [[place]] Allergy (Mild, Verified 04/09/17 18:44) Penicillins Allergy (Unknown, Verified 04/09/17 18:44) as child Home Medications: Medication Instructions Recorded lamoTRIgine [LamICTAL 100 MG (RX)] 200 mg PO 01/20/13 Methylphenidate 09/02/17 Laboratory Results: Laboratory Results 05/06/18 18:55 05/06/18 18:55 05/06/18 05/06/18 05/06/18 20:15 18:55 18:55 WBC RBC Hgb Hct MCV MCH MCHC RDW Plt Count MPV Neut % (Auto) Lymph % (Auto) [place] % (Auto) Eos % (Auto) Baso % (Auto) Nucleat RBC Rel Count Absolute Neuts (auto) Absolute Lymphs (auto) Absolute Monos (auto) Absolute Eos (auto) Absolute Basos (auto) Absolute Nucleated RBC Immature Gran % Seg Neutrophils % Band Neutrophils % Lymphocytes % Monocytes % Eosinophils % Basophils % Metamyelocytes % Myelocytes % Promyelocytes % Blast Cells % Immature Gran # Absolute Seg Neuts Absolute Band Neuts Absolute Lymphocytes Absolute Monocytes Absolute Eosinophils Absolute Basophils Absolute Metamyelocyte Absolute Myelocytes Absolute Promyelocytes Absolute Plasma Cells Nucleated RBCs RBC/WBC/PLT Morphology Absolute Blast Cells Plasma Cells % Platelet Estimate PT 14.5 SEC SEC (12.0-15.0) INR 1.11 (0.83-1.16) APTT 28.9 SEC SEC (23.0-38.0) Sodium 133 mEq/L L mEq/L (135-145) Potassium 3.8 mEq/L mEq/L (3.3-5.0) Chloride 103 mEq/L mEq/L (97-110) Carbon Dioxide 25 mEq/l mEq/l (22-31) Anion Gap 5 mEq/L L mEq/L (8-16) BUN 12 mg/dL mg/dL (7-23) Creatinine 1.1 mg/dL mg/dL (0.7-1.3) Estimated GFR > 60 Glucose 113 mg/dL H mg/dL (70-100) Calcium 9.3 mg/dL mg/dL (8.5-10.4) Total Bilirubin 1.4 mg/dL mg/dL (0.1-1.4) Conjugated Bilirubin 0.4 mg/dL mg/dL (0.0-0.5) Unconjugated Bilirubin 1.0 mg/dL mg/dL (0.0-1.1) AST 58 IU/L IU/L (17-59) ALT 50 IU/L IU/L (21-72) Alkaline Phosphatase 66 IU/L IU/L (38-126) Total Protein 7.3 g/dL g/dL (6.3-8.2) Albumin 4.3 g/dL g/dL (3.5-5.0) Lipase 119 IU/L IU/L (23-300) Urine Color YELLOW Urine Appearance CLEAR Urine pH 5.0 (5.0-7.5) Ur Specific [place] > 1.035 H (1.002-1.030) Urine Protein NEGATIVE (NEGATIVE) Urine Ketones 1+ H (NEGATIVE) Urine Blood NEGATIVE (NEGATIVE) Urine Nitrate NEGATIVE (NEGATIVE) Urine Bilirubin NEGATIVE (NEGATIVE) Urine Urobilinogen NEGATIVE EU EU (0.2-1.0) Ur Leukocyte Esterase NEGATIVE (NEGATIVE) Urine RBC Pending Urine WBC Pending Ur Epithelial Cells Pending Urine Glucose NEGATIVE (NEGATIVE) 05/06/18 18:55 WBC 14.94 10^3/uL H 10^3/uL (3.80-9.50) RBC 4.21 10^6/uL L 10^6/uL (4.40-6.38) Hgb 14.3 g/dL g/dL (13.7-17.5) Hct 40.6 % % (40.0-51.0) MCV 96.4 fL fL (81.5-99.8) MCH 34.0 pg pg (27.9-34.1) MCHC 35.2 g/dL g/dL (32.4-36.7) RDW 12.7 % % (11.5-15.2) Plt Count 213 10^3/uL 10^3/uL (150-400) MPV 10.1 fL fL (8.7-11.7) Neut % (Auto) Not Reported Lymph % (Auto) Not Reported [place] % (Auto) Not Reported Eos % (Auto) Not Reported Baso % (Auto) Not Reported Nucleat RBC Rel Count Not Reported Absolute Neuts (auto) Not Reported Absolute Lymphs (auto) Not Reported Absolute Monos (auto) Not Reported Absolute Eos (auto) Not Reported Absolute Basos (auto) Not Reported Absolute Nucleated RBC Not Reported Immature Gran % Not Reported Seg Neutrophils % 73.3 % % Band Neutrophils % 16.8 % % Lymphocytes % 2.0 % % Monocytes % 5.9 % % Eosinophils % 0 % % Basophils % 2.0 % % Metamyelocytes % 0 % % Myelocytes % 0 % % Promyelocytes % 0 % % Blast Cells % 0 % % Immature Gran # Not Reported Absolute Seg Neuts 10.95 10^/uL H 10^/uL (1.70-6.50) Absolute Band Neuts 2.51 10^3/uL H 10^3/uL (0.00-0.70) Absolute Lymphocytes 0.30 10^3/uL L 10^3/uL (1.00-3.00) Absolute Monocytes 0.88 10^3/uL H 10^3/uL (0.30-0.80) Absolute Eosinophils 0.00 10^3/uL L 10^3/uL (0.03-0.40) Absolute Basophils 0.30 10^3/uL H 10^3/uL (0.02-0.10) Absolute Metamyelocyte 0.00 10^3/mL 10^3/mL (0.00-0.00) Absolute Myelocytes 0.00 10^3/mL 10^3/mL (0.00-0.00) Absolute Promyelocytes 0.00 10^3/uL 10^3/uL (0.00-0.00) Absolute Plasma Cells 0.00 10^3/uL 10^3/uL (0.00-0.00) Nucleated RBCs 0 /100 WBC /100 WBC (0-0) RBC/WBC/PLT Morphology NORMAL (NORMAL) Absolute Blast Cells 0.00 10^3/uL 10^3/uL (0.00-0.00) Plasma Cells % 0 % % Platelet Estimate ADEQUATE (ADEQ) PT INR APTT Sodium Potassium Chloride Carbon Dioxide Anion Gap BUN Creatinine Estimated GFR Glucose Calcium Total Bilirubin Conjugated Bilirubin Unconjugated Bilirubin AST ALT Alkaline Phosphatase Total Protein Albumin Lipase Urine Color Urine Appearance Urine pH Ur Specific [place] Urine Protein Urine Ketones Urine Blood Urine Nitrate Urine Bilirubin Urine Urobilinogen Ur Leukocyte Esterase Urine RBC Urine WBC Ur Epithelial Cells Urine Glucose Medications Given: Discontinued Medications Sodium Chloride (Ns) 1,000 mls @ 0 mls/hr IV EDNOW ONE; Wide Open PRN Reason: Protocol Stop: 05/06/18 19:22 Last Admin: 05/06/18 19:27 Dose: 1,000 mls Morphine Sulfate (Morphine) 4 mg IVP EDNOW ONE Stop: 05/06/18 19:08 Last Admin: 05/06/18 19:12 Dose: 4 mg Ondansetron HCl (Zofran) 4 mg IVP EDNOW ONE Stop: 05/06/18 19:08 Last Admin: 05/06/18 19:12 Dose: Not Given Departure - Departure Disposition: [facility] Inpatient Acute Clinical Impression: Acute appendicitis Qualifiers: Acute appendicitis type: with localized peritonitis Qualified Code(s): K35.3 - Acute appendicitis with localized peritonitis Condition: Good Referrals: Renee Fink MD [Doctor of Osteopathy] - As per Instructions
[2018-05-06] MEDS ORDERED: IOPAMIDOL (ISOVUE-300) 100 ML BTL ONE (19:12)
[2018-05-06 19:16] LABS: PLATELET COUNT 213 10^3/uL (150-400)
[2018-05-06] MEDS ORDERED: NS 1,000 ML IV ONE (19:21)
[2018-05-06 19:24] LABS: INR 1.11 (0.83-1.16); PROTIME(PATIENT) 14.5 SEC (12.0-15.0)
[2018-05-06] MEDS ORDERED: BUPIVACAINE/EPI 0.5% 30 ML SDV ONE (20:48)
[2018-05-06] MEDS ORDERED: BUPIVACAINE 0.25% 30 ML SDV ONE (20:48)
[2018-05-06] MEDS ORDERED: CLINDAMYCIN 900 MG/DEXTROSE 50 ML IV ONE (20:48)
[2018-05-06] MEDS ORDERED: EPINEPHrine 1 MG/ML INJ ONE (20:48)
[2018-05-06] MEDS ORDERED: LR 1,000 ML IV ONE (20:50)
--- NOTE | 2018-05-06 20:55 | PDGENHP ---
History and Physical - Chief Complaint abdominal pain - History of Present Illness 57yo M has longstanding Hx of abdominal pain. Awoke this AM, had acute worsening of the pain this AM. Decided to wait the pain out and try some nausea medicine, it didnt work. He presents here with RLQ pain, no radiation worse with activity 7/10 in intensity better with pain medications. History Information - Allergies/Home Medication List Allergies/Adverse Reactions: lithium [[place]] Allergy (Mild, Verified 04/09/17 18:44) Penicillins Allergy (Unknown, Verified 04/09/17 18:44) as child Home Medications: lamoTRIgine [LamICTAL 100 MG (RX)] 200 mg PO 01/20/13 [Last Taken Unknown] Methylphenidate 09/02/17 [Last Taken Unknown] I have personally reviewed and updated: medical history, social history, surgical history - Past Medical History Additional medical history: Bipolar disorder. depression. history of nephrolithiasis (2002) - Surgical History Additional surgical history: Lithotripsy. cholecystectomy. knee arthroscopy. rotator cuff. hypospadia correction - Family History Positive for: non-pertinent - Social History Smoking Status: Never smoked Additional social history: patient lives alone, is independent in ADLs, works as a courrier Review of Systems Review of Systems: ROS: 10pt was reviewed & negative except for what was stated in HPI & below Physical Exam Physical Exam: Temp Pulse Resp BP Pulse Ox 37.2 C 98 16 138/78 H 95 05/06/18 18:20 05/06/18 18:20 05/06/18 18:20 05/06/18 18:20 05/06/18 18:20 Constitutional: no apparent distress, appears nourished, not in pain Eyes: PERRL, anicteric sclera, EOMI Ears, Nose, Mouth, Throat: moist mucous membranes, hearing normal, ears appear normal, no oral mucosal ulcers Cardiovascular: regular rate and rhythym, no murmur, rub, or gallop, No edema Respiratory: no respiratory distress, no rales or rhonchi, clear to auscultation Gastrointestinal: normoactive bowel sounds, no palpable masses, other (TTP in the RLQ, no rebound) Genitourinary: no bladder fullness, no bladder tenderness Skin: warm, normal color, no rashes or abrasions, no fluctuance, no induration, No mottled Musculoskeletal: full muscle strength, no muscle tenderness, normal joint ROM, no joint effusions Psychiatric: interacting appropriately, not anxious, not encephalopathic, thought process linear Lymph, Heme, Immunologic: no cervical LAD, no supraclavicular LAD Lab Data & Imaging Review 05/06/18 18:55 07 18:55 WBC 14.94 10^3/uL (3.80-9.50) H 05/06/18 18:55 RBC 4.21 10^6/uL (4.40-6.38) L 05/06/18 18:55 Hgb 14.3 g/dL (13.7-17.5) 05/06/18 18:55 Hct 40.6 % (40.0-51.0) 05/06/18 18:55 MCV 96.4 fL (81.5-99.8) 05/06/18 18:55 MCH 34.0 pg (27.9-34.1) 05/06/18 18:55 MCHC 35.2 g/dL (32.4-36.7) 05/06/18 18:55 RDW 12.7 % (11.5-15.2) 05/06/18 18:55 Plt Count 213 10^3/uL (150-400) 05/06/18 18:55 MPV 10.1 fL (8.7-11.7) 05/06/18 18:55 Neut % (Auto) Not Reported 05/06/18 18:55 Lymph % (Auto) Not Reported 05/06/18 18:55 [place] % (Auto) Not Reported 05/06/18 18:55 Eos % (Auto) Not Reported 05/06/18 18:55 Baso % (Auto) Not Reported 05/06/18 18:55 Nucleat RBC Rel Count Not Reported 05/06/18 18:55 Absolute Neuts (auto) Not Reported 05/06/18 18:55 Absolute Lymphs (auto) Not Reported 05/06/18 18:55 Absolute Monos (auto) Not Reported 05/06/18 18:55 Absolute Eos (auto) Not Reported 05/06/18 18:55 Absolute Basos (auto) Not Reported 05/06/18 18:55 Absolute Nucleated RBC Not Reported 05/06/18 18:55 Immature Gran % Not Reported 05/06/18 18:55 Seg Neutrophils % 73.3 % 05/06/18 18:55 Band Neutrophils % 16.8 % 05/06/18 18:55 Lymphocytes % 2.0 % 05/06/18 18:55 Monocytes % 5.9 % 05/06/18 18:55 Eosinophils % 0 % 05/06/18 18:55 Basophils % 2.0 % 05/06/18 18:55 Metamyelocytes % 0 % 05/06/18 18:55 Myelocytes % 0 % 05/06/18 18:55 Promyelocytes % 0 % 05/06/18 18:55 Blast Cells % 0 % 05/06/18 18:55 Immature Gran # Not Reported 05/06/18 18:55 Absolute Seg Neuts 10.95 10^/uL (1.70-6.50) H 05/06/18 18:55 Absolute Band Neuts 2.51 10^3/uL (0.00-0.70) H 05/06/18 18:55 Absolute Lymphocytes 0.30 10^3/uL (1.00-3.00) L 05/06/18 18:55 Absolute Monocytes 0.88 10^3/uL (0.30-0.80) H 05/06/18 18:55 Absolute Eosinophils 0.00 10^3/uL (0.03-0.40) L 05/06/18 18:55 Absolute Basophils 0.30 10^3/uL (0.02-0.10) H 05/06/18 18:55 Absolute Metamyelocyte 0.00 10^3/mL (0.00-0.00) 05/06/18 18:55 Absolute Myelocytes 0.00 10^3/mL (0.00-0.00) 05/06/18 18:55 Absolute Promyelocytes 0.00 10^3/uL (0.00-0.00) 05/06/18 18:55 Absolute Plasma Cells 0.00 10^3/uL (0.00-0.00) 05/06/18 18:55 Nucleated RBCs 0 /100 WBC (0-0) 05/06/18 18:55 RBC/WBC/PLT Morphology NORMAL (NORMAL) 05/06/18 18:55 Absolute Blast Cells 0.00 10^3/uL (0.00-0.00) 05/06/18 18:55 Plasma Cells % 0 % 05/06/18 18:55 Platelet Estimate ADEQUATE (ADEQ) 05/06/18 18:55 PT 14.5 SEC (12.0-15.0) 05/06/18 18:55 INR 1.11 (0.83-1.16) 05/06/18 18:55 APTT 28.9 SEC (23.0-38.0) 05/06/18 18:55 Sodium 133 mEq/L (135-145) L 05/06/18 18:55 Potassium 3.8 mEq/L (3.3-5.0) 05/06/18 18:55 Chloride 103 mEq/L (97-110) 05/06/18 18:55 Carbon Dioxide 25 mEq/l (22-31) 05/06/18 18:55 Anion Gap 5 mEq/L (8-16) L 05/06/18 18:55 BUN 12 mg/dL (7-23) 05/06/18 18:55 Creatinine 1.1 mg/dL (0.7-1.3) 05/06/18 18:55 Estimated GFR > 60 05/06/18 18:55 Glucose 113 mg/dL (70-100) H 05/06/18 18:55 Calcium 9.3 mg/dL (8.5-10.4) 05/06/18 18:55 Total Bilirubin 1.4 mg/dL (0.1-1.4) 05/06/18 18:55 Conjugated Bilirubin 0.4 mg/dL (0.0-0.5) 05/06/18 18:55 Unconjugated Bilirubin 1.0 mg/dL (0.0-1.1) 05/06/18 18:55 AST 58 IU/L (17-59) 05/06/18 18:55 ALT 50 IU/L (21-72) 05/06/18 18:55 Alkaline Phosphatase 66 IU/L (38-126) 05/06/18 18:55 Total Protein 7.3 g/dL (6.3-8.2) 05/06/18 18:55 Albumin 4.3 g/dL (3.5-5.0) 05/06/18 18:55 Lipase 119 IU/L (23-300) 05/06/18 18:55 Urine Color YELLOW 05/06/18 20:15 Urine Appearance CLEAR 05/06/18 20:15 Urine pH 5.0 (5.0-7.5) 05/06/18 20:15 Ur Specific [place] > 1.035 (1.002-1.030) H 05/06/18 20:15 Urine Protein NEGATIVE (NEGATIVE) 05/06/18 20:15 Urine Ketones 1+ (NEGATIVE) H 05/06/18 20:15 Urine Blood NEGATIVE (NEGATIVE) 05/06/18 20:15 Urine Nitrate NEGATIVE (NEGATIVE) 05/06/18 20:15 Urine Bilirubin NEGATIVE (NEGATIVE) 05/06/18 20:15 Urine Urobilinogen NEGATIVE EU (0.2-1.0) 05/06/18 20:15 Ur Leukocyte Esterase NEGATIVE (NEGATIVE) 05/06/18 20:15 Urine RBC 10-15 /hpf (0-3) H 05/06/18 20:15 Urine WBC 1-3 /hpf (0-3) 05/06/18 20:15 Ur Epithelial Cells TRACE /lpf (NONE-1+) 05/06/18 20:15 Urine Glucose NEGATIVE (NEGATIVE) 05/06/18 20:15 Visualized and Interpreted imaging results: Yes Interpretation: CT: acute, non perforated appendicitis Assessment & Plan Plan: 57yo M c acute appendicitis - to OR for lap appy - RBA discussed - Abx building construction foreman to the OR
--- NOTE | 2018-05-06 21:03 | PDANEPAE ---
ANE History of Present Illness acute appendicitis ANE Past Medical History - Cardiovascular History Hx Hypertension: No Hx Arrhythmias: No Hx Chest Pain: No Hx Coronary Artery / Peripheral Vascular Disease: No Hx CHF / Valvular Disease: No Hx Palpitations: No - Pulmonary History Hx COPD: No Hx Asthma/Reactive Airway Disease: No Hx Recent Upper Respiratory Infection: No Hx Oxygen in Use at Home: No Hx Sleep Apnea: No - Endocrine History Hx Diabetes: No Hypothyroid: No Hyperthyroid: No Obesity: no ANE Review of Systems Review of systems is: negative Review of Systems: - Exercise capacity Exercise capacity: >=4 METS ANE Patient History - Allergies Allergies/Adverse Reactions: lithium [[place]] Allergy (Mild, Verified 04/09/17 18:44) Penicillins Allergy (Unknown, Verified 04/09/17 18:44) as child - Home Medications Home medications: home medication list seen and reviewed Home Medications: lamoTRIgine [LamICTAL 100 MG (RX)] 200 mg PO 01/20/13 [Last Taken Unknown] Methylphenidate 09/02/17 [Last Taken Unknown] - Anes Hx Anes Hx: no prior problems - Smoking Hx Smoking Status: Never smoked - Alcohol Use Alcohol Use: None ANE Labs/Vital Signs - Labs Result Diagrams: 05/06/18 18:55 05/06/18 18:55 - Vital Signs Blood Pressure: 129/82 Heart Rate: 100 Respiratory Rate: 16 O2 Sat (%): 93 Height: 175.26 cm Weight: 89.811 kg ANE Physical Exam - Airway Neck exam: FROM Mallampati Score: Class 1 Mouth exam: normal dental/mouth exam - Pulmonary Pulmonary: no respiratory distress - Cardiovascular Cardiovascular: regular rate and rhythym - ASA Status ASA Status: II ANE Anesthesia Plan Anesthesia Plan: general endotracheal anesthesia
[2018-05-06] MEDS ORDERED: PROPOFOL 200 MG/20 ML VIAL ONE (21:16)
[2018-05-06] MEDS ORDERED: fentaNYL 100 MCG/2 ML INJ ONE ×3 (21:16→22:55)
[2018-05-06] MEDS ORDERED: levOFLOXACIN 500 MG/DEXTROSE 100 ML IV ONE (21:18)
[2018-05-06] MEDS ORDERED: KETOROLAC 30 MG/1 ML SDV ONE (21:23)
[2018-05-06] MEDS ORDERED: LIDOCAINE 2% 5 ML SDV ONE (21:23)
[2018-05-06] MEDS ORDERED: DEXAMETHASONE 4 MG/ML VIAL ONE (21:23)
[2018-05-06] MEDS ORDERED: MIDAZOLAM 2 MG/2 ML VIAL ONE (21:23)
[2018-05-06] MEDS ORDERED: SUGAMMADEX SODIUM 200 MG/2 ML VIAL IVP ONE (21:23)
[2018-05-06] MEDS ORDERED: ONDANSETRON 4 MG/2 ML VIAL ONE (21:23)
[2018-05-06] MEDS ORDERED: MIDAZOLAM 2 MG/2 ML VIAL IVP ONE (21:29)
--- NOTE | 2018-05-06 21:30 | POSTANESTH ---
Post Anesthetic Evaluation Cardiovascular Status: Normal, Stable Respiratory Status: Normal, Stable Level of Consciousness/Mental Status: Can Participate in Eval, Alert and Oriented Pain Control: Adequate, Prn Tx Ordered Nausea/Vomiting Control: Adequate, Prn Tx Ordered Complications Possibly Related to Anesthesia: None Noted
[2018-05-06] MEDS ORDERED: PHENYLEPHRINE HCL 100 MCG/ML SYR ONE (21:45)
[2018-05-06] MEDS ORDERED: NALOXONE HCL 0.4 MG/ML INJ IVP PRN (21:56)
[2018-05-06] MEDS ORDERED: METOCLOPRAMIDE 10 MG/2 ML VIAL IVP PRN (21:56)
[2018-05-06] MEDS ORDERED: ALBUTEROL 3 ML DEYVIAL IH PRN (21:56)
[2018-05-06] MEDS ORDERED: HYDROCODONE/APAP 5/325 TAB PO PRN (21:56)
[2018-05-06] MEDS ORDERED: oxyCODONE IR 5 MG TAB PO PRN ×2 (21:56→22:17)
[2018-05-06] MEDS ORDERED: HYDROmorphONE/DILAUDID 1 MG/ML INJ IVP PRN ×2 (21:56→22:17)
[2018-05-06] MEDS ORDERED: ONDANSETRON 4 MG/2 ML VIAL IVP PRN ×2 (21:56→22:17)
[2018-05-06] MEDS ORDERED: PROMETHAZINE HCL 25 MG/ML INJ IVP PRN (21:56)
[2018-05-06] MEDS ORDERED: LR 500 ML IV PRN (21:56)
[2018-05-06] MEDS ORDERED: ACETAMINOPHEN 500 MG TAB PO PRN (21:56)
--- NOTE | 2018-05-06 22:18 | POSTOPPROG ---
Post Op Note Date of Operation: 05/06/18 Surgeon: Atul Morgan Anesthesiologist: Cortes Anesthesia: GET(General Endotracheal) Pre-op Diagnosis: appendicitis Post-op Diagnosis: same Procedure: laparscopic appendectomy Findings: acute, non perforated Inf/Abcess present in the surg proc area at time of surgery?: No EBL: Minimal Total fluids administered: 1000cc NS washout Specimen(s): appendix
[2018-05-06] MEDS ORDERED: D5W 1/2 NS W/ 20 KCl/L 1,000 ML IV SCH (22:30)
[2018-05-06] MEDS: fentaNYL 100 MCG/2 ML INJ IVP PRN ×2 (23:01→23:15)
--- NOTE | 2018-05-07 02:39 | GOP ---
[f rep st] OPERATIVE REPORT DATE OF OPERATION: 05/06/2018 SURGEON: Atul Morgan MD WASTE COTTON CLEANER: None. ANESTHESIA: General endotracheal ANESTHESIOLOGIST: Dr. Adán Kolb. PREOPERATIVE DIAGNOSIS: Acute appendicitis. POSTOPERATIVE DIAGNOSIS: Acute appendicitis. PROCEDURE PERFORMED: Laparoscopic appendectomy. FINDINGS: Acute indurated nonperforated appendicitis. SPECIMENS: Appendix. ESTIMATED BLOOD LOSS: 5 cc. DESCRIPTION OF PROCEDURE: The patient was greeted in the preoperative suite. Once again, risks, venice efits, and alternatives were discussed. Consent was signed. He was then brought back to the operati ve suite, placed on the OR table in supine position. After all anesthesia machines including SCDs we re on and functioning, [facility] time-out was performed. After successful induction of general anesthesia, the patient's abdomen was prepped and draped in typical sterile fashion. I en tered the abdomen via an infraumbilical cutdown through which the Veress needle was passed. I achiev ed pneumoperitoneum to 15 mmHg of CO2 which was well tolerated by the patient. Through this I insert ed a 12 mm Visiport under direct visualization. I then inserted 2 additional 5 mm trocars 1 in the s uprapubic, 1 in the left lower quadrant, both under direct visualization. I identified the appendix by tracing the taeniae inferiorly it was acutely indurated but not perforated. I created a window at the cecal base and successfully amputated the appendix from the remaining colon with a single fire o f the blue Endo-NICOLAS stapler. In the same fashion using a white load I successfully took the mesoappe ndix. The specimen was then removed with an EndoCatch bag. The mesoappendix did have some bleeding which was easily taken care of with multiple 5 mm hemoclips. After hemostasis was assured, I irrigat ed the right lower quadrant as well as the patient's pelvis with sterile saline noting clear effluent in the suction canister. Local anesthesia was then infiltrated into my port sites which were then r emoved. Pneumoperitoneum was evacuated. I closed my infraumbilical fascia with an 0 Vicryl stitch n oting excellent fascial reapproximation. The skin was then closed with Monocryl over which Dermabond was placed. The patient was then extubated in the operative suite and taken to the PACU in satisfac tory condition. DRAINS: None. COUNTS: All counts were reported as correct x2. /[id number]/MODL
[2018-05-07] MEDS ORDERED: IBUPROFEN 600 MG TAB PO SCH (06:00)
[2018-05-07 08:34] VITALS: BP 153/90
--- NOTE | 2018-05-07 09:24 | ASDISCHSUM ---
Discharge Information Plan Status:Home with No Needs Medically Cleared to Leave:05/07/2018 Discharge Date:05/07/2018 CM D/C Disposition:Home, Routine, Self-Care ADT D/C Disposition:Home, Routine, Self-Care Projected Discharge Date:05/07/2018 Transportation at D/C:Family Discharge Delay Reason: Follow-Up Date:05/07/2018 Discharge Slot: Final Diagnosis: Placement Information Patient Contact Information Contact Name:RUY Relationship:Mother Address:[address] Work Phone: City:[place] Alternate Phone: State/Zip Code:[place] [address] Email: Financial Information Financial Class:Medicare Primary Plan Desc:MEDICARE OUTPATIENT Primary Plan Number:[id number] Secondary Plan Desc:MED[place] Secondary Plan Number:[id number] Assessment Information LACE LACE Length of stay for Answers: Less than 1 day current admission Acuity / Level of Answers: No Care: Did the patient have an inpatient admission? Comorbidities - select Answers: Other Notes: nephrolithiasis all that apply # of Emergency department Answers: 1-2 visits in the last 6 months Social determinants Answers: Mental health diagnosis (anxiety, depression, pers onality disorders, etc.) Score: 5 Date Signed: 05/07/2018 09:23 AM Electronically Signed By:Karolyn Ashley RN Intervention Information Intervention Type:*GUILLEN-Signed Date of Service:05/07/2018 09:24 AM Patient Type:Observation Staff Member:LUCINDA Ashley Hillary Hours: Discipline: Severity: Comment:
--- NOTE | 2018-05-26 12:07 | GDS ---
[f rep st] DISCHARGE SUMMARY DISCHARGE DIAGNOSES: Include acute appendicitis. HOSPITAL COURSE: The patient was admitted from the emergency department, and taken to the operating room that evening for uneventful laparoscopic appendectomy. The remainder of his hospital course was uneventful, and he was sent home on postoperative day 1. DISPOSITION: Home. FOLLOWUP: He will follow up with me in 10-14 days for a routine postop visit. /[id number]/MODL
== END 2018-05-07 11:00 | disposition home or self-care (01) ==
LOC: F1N 23:11
PROVIDERS: ADMIT Surgery; ATTEND Surgery
PROC: 0DTJ4ZZ Resection of Appendix, Percutaneous Endoscopic Approach (ICD-10-PCS; principal; 2018-05-06 21:15)
DX: K35.80 Unspecified acute appendicitis (principal); E86.9 Volume depletion, unspecified; F31.9 Bipolar disorder, unspecified; Q63.9 Congenital malformation of kidney, unspecified; Z87.442 Personal history of urinary calculi; Z88.0 Allergy status to penicillin
CPT/HCPCS: 44970; 74177; 88304; G0378; J1100; J1885; J1956; J2250; J2270; J2370; J2405; J2704; J3010; Q9967; 96374; J0171

== ENCOUNTER 2018-08-10 08:34 | Inpatient (IN) | payer OTHER ==
[2018-08-10] MEDS ORDERED: MAG HYDROX/AL HYDROX/SIMETH 30 ML UDCUP PO PRN (11:01)
[2018-08-10] MEDS ORDERED: MAGNESIUM HYDROXIDE 30 ML UDCUP PO PRN (11:01)
--- NOTE | 2018-08-10 12:00 | ASMTBHMTP ---
Master Treatment Plan Master Treatment Plan Answers: Depressed Mood with for: Suicidal Ideation Date: 08/10/2018 Diagnosis on Admission: Bi-Polar Disorder, Depressive Type Expected length of stay: 3-5 days Reason for admission: Notes: Client is a 57 yoa male that lives independently in [facility]. Client has SSDI, Medicaid and Medicare. Client walked in and had an apt with the doctor at [facility] and they believe he is gravely disabled due to depression. Client has not been eating, not getting out of bed, passive S/I and is in a downward spiral. Patient's stated presenting problems: Notes: "Stay sitting up, structure and routine." Patient's goals for treatment: Notes: "to reset and to keep breathing." Patient's strengths: Notes: I don't know Identify supports outside of hospital: Notes: Yes, but would not say. Discharge criteria: Notes: Suicidal Ideation will resolve and patient will have a plan to safely manage recurrent suicidal ideation. Initial disposition plan/considerations: Notes: Go back to his apartment. Master Treatment Plan Required Signatures Psychiatrist signature: Answers: Psychiatrist: RN on-shift signature: Answers: RN: Patient signature: Answers: Patient: Date Signed: 08/10/2018 11:59 AM Electronically Signed By:Tj Lance
[2018-08-10] MEDS: lamoTRIgine 100 MG TAB PO SCH (13:55)
--- NOTE | 2018-08-10 13:59 | BAPA ---
DATE OF SERVICE: 08/10/2018 CHIEF COMPLAINT: "Here due to depression and unable to care for myself." HISTORY OF PRESENT ILLNESS: The patient was admitted voluntarily due to being gravely disabled and is hospitalized for safety crisis stabilization and medication evaluation. The patient describes to this SHEET SEWER circumstances that led to current hospitalization as severe depression. Reports he has been isolating in his apartment for 6 weeks. The patient reports a long history of chronic treatment-resistant depression. The patient denies using any alcohol or substances prior to his admission. The patient describes to this SHEET SEWER current psychiatric symptoms as depression, depressed mood, significant weight loss, decreased appetite, hyperinsomnia nearly every day, fatigue, low energy nearly every day, feelings of worthlessness and excessive guilt, diminished ability to think or concentrate nearly every day, and ongoing indecisiveness nearly every day. The patient denies other psychiatric symptoms, including symptoms of apolonia , anxiety, ADHD, OCD, PTSD, psychosis, and any other symptom of a psychiatric disorder. The patient describes to this SHEET SEWER current psychiatric symptoms are impacting managing his day-to-day life described as extreme difficulty with simple day-to-day activities. The patient reports he is currently unemployed, is not socializing and has been isolating from both family and friends. The patient reports he typically enjoys being outside and enjoys activities outside such as hiking. However, patient reports he has not engaged in outdoor activities for over 6 weeks. The patient reports he is not currently satisfied with his life. Patient denies current suicidal ideation. The patient is unable to identify any protective factors or reasons to live and does not describe any future goals or plans. The patient reports he currently has no support network. The patient denies current homicidal ideation and denies current self-injurious ideation. The patient currently receives outpatient medication management and therapy services from [facility]. PAST PSYCHIATRIC HISTORY: The patient describes to this SHEET SEWER the following psychiatric history. The patient reports a history of treatment-resistant depression. The patient reports trials of numerous medications, including Prozac, Zoloft, Effexor, Cymbalta, lithium, Lamictal, Lexapro, Latuda, Abilify, Wellbutrin, Remeron, and trazodone. The patient reports he has been on methylphenidate since 2010 and reports some benefit from this medication for cognitive slowing and it provides just enough energy for him to be able to perform activities of daily living. The patient reports history of inpatient hospitalization at [facility] and [facility]. The patient denies history of withdrawal from drugs or alcohol. The patient reports a history of several suicide attempts. The patient reports first suicide attempts in [id number]. Reports 2 attempts by overdose. The patient reports another suicide attempt in 2000 and from [id number] by overdose. The patient denies history of self-injurious behavior. ALLERGIES: Cyclobenzaprine, lithium, clindamycin, and penicillins. CURRENT MEDICATIONS: These are the patient's current outpatient medications that he is prescribed at [facility]: Methylphenidate 20 mg p.o. twice daily, Lamictal 300 mg p.o. daily. PAST MEDICAL HISTORY: The patient describes to this SHEET SEWER the following past medical history: The patient denies history of neurological disorders. Denies history of major illnesses or major hospitalizations. SOCIAL HISTORY: The patient describes to this SHEET SEWER the following social history: The patient reports he was born in [place], [place] and raised the majority of his life in [place], [place] by his mother. The patient reports he currently lives in [place], [place]. Patient describes meeting all his developmental milestones. Reports no learning delays or difficulties. Patient describes his sexual orientation as heterosexual. Reports he is currently not in a relationship, has never been , and has no children. The patient reports he is currently on disability and SSI. The patient reports highest level of education as a Bachelor's of Science degree from in business administration. The patient denies history of duty. The patient reports anglican or spiritual practice as Holiness and Gerard. The patient denies history of any legal charges. SUBSTANCE USE HISTORY: The patient describes to this SHEET SEWER the following substance use history: The patient reports he does not drink alcohol and uses no substances. FAMILY PSYCHIATRIC HISTORY: The patient describes to this SHEET SEWER the following family psychiatric history: The patient denies family history of mental illness. The patient reports a family history of suicide as his paternal grandfather attempted suicide. The patient denies family history of substance abuse. ADMISSION LABS AND STUDIES: Current labs that are pending that have been ordered by this SHEET SEWER include: CMP, CBC, urine drug screen, A1c and lipid panel. MENTAL STATUS EXAM: The patient is a well-nourished, well-developed male, looking stated chronological age. Attire is appropriate and dress is casual and neat and clean. Grooming status is appropriate. Ambulation is independent. Gait is normal and coordinated. Posture is normal and relaxed. Eye contact is appropriate. Motor activity is appropriate with purposeful, organized, coordinated movements with no involuntary movements noted. Attitude is cooperative and friendly. The patient appears attentive and relates well to this interviewer. Language production is spontaneous. Rate is somewhat hesitant. Latency of response is prolonged with sad tone and low volume, amount is appropriate. Articulation is clear. The patient reports mood as depressed with constricted and congruent affect. The patient's thought process is linear and logical with no loose associations or tangential thought. No concrete thinking or other signs of formal thought disorder. At times, the patient has difficulty answering questions in the appropriate amount of time. The patient does not report suicidal, homicidal thoughts, ideas, or plans. The patient denies auditory or visual hallucinations. The patient denies delusions. The patient does not appear to be attending to internal stimuli. The patient is oriented to person, place, time, and situation. The patient's attention and concentration are poor. The patient's insight and judgment are poor. There is no evidence of gross cognitive dysfunction at any point during the interview and no evidence of apparent dysfunction in recent or remote memory noted. The patient does not report undesirable side effects from the current medications. DIAGNOSIS: Based on the patient's history and current presentation, his diagnosis is major depressive disorder, recurrent episode, severe, treatment- resistant and refractory. FORMULATION: The patient is a 57-year-old male, single, on disability, living in [place], [place] who presents to the hospital voluntarily due to being unable to care for himself due to his severe depression. The patient requires continued inpatient care because of current severe depression. The patient presents with problems of increased severity of depression that has steadily been increasing over the past several weeks. Patient's life has been affected by these problems, including his inability to appropriately engage in activities of daily living. The patient has a past psychiatric history of ongoing chronic severe depression. The patient has tried numerous trials of antidepressants with little to no benefit for his depression symptoms. Patient is at a moderate to high safety risk due to his level of depression and history of suicide attempts. Protective factors while hospitalized include ongoing safety checks, active involvement in treatment, and support from our treatment team. The patient could benefit from inpatient hospitalization for safety crisis stabilization and medication evaluation. PLAN: (1) Psychotropic medications: After reviewing options, risks and benefits, patient agrees to continue current medications. This SHEET SEWER will contact the patient's outpatient psychiatric provider at [facility] for consultation regarding next steps with the medication changes during the patient 's hospitalization. No other medication changes at this time as more time is needed to determine ongoing tolerability and efficacy. Plan is to continue to observe patient for response and side effects from medications, and ongoing monitoring and evaluation. (2) Review with patient informed consent and recommendations for psychotropic medication treatment listed below (3) Labs: CMP, CBC, urine drug screen, A1c and lipid panel. (4) Therapy: continue milieu and group therapy (5) Further investigation including gathering information from patients relatives and review of past case records to inform treatment plan. (6) Safety/Wellness plan and follow-up outpatient appointments to be established prior to discharge. Next steps are for patient to meet with care mgr to plan a safe discharge plan and establish outpatient services for ongoing treatment. (7) Confer with inpatient treatment team regarding treatment plan. (8) Legal status: voluntary (9) Consider discharge next week if patient is in stable condition, safe, and has a safe discharge plan. ESTIMATED LENGTH OF STAY: 3-5 days PSYCHOTROPIC MEDICATION TREATMENT INFORMED CONSENT and RECOMMENDATIONS: Review nature of condition, diagnosis, and prognosis. Review nature and purpose of psychotropic medication treatment. Review type of psychotropic medications being ordered. Review risk and benefits of psychotropic medication treatment. Review probable length of time will need to take medications. Review risk and benefits of not undergoing psychotropic medication treatment. Review alternative treatments to psychotropic medications. Review psychotropic medications contraindications, drug-drug interactions, side effects, and importance of reporting any side effects to a psychiatric provider or nurse during inpatient hospitalization, and upon discharge to patients psychiatric outpatient provider, primary care provider, or other health health care analyst. Review importance of asking a nurse, psychiatric provider, or primary care provider any questions or problems concerning the psychotropic medications. Verify patient understands the information that has been provided, and understands, accepts, and agrees to psychotropic medications. Review patients safety plan and importance of patient to communicate to staff while hospitalized if patient is ever a danger to self/others, or unable to care for self, and upon discharge, the importance for patient to contact [facility] or [facility], or go to the nearest emergency room, if patient is ever a danger to self/others, or unable to care for self. Recommend that upon discharge patient establish medication management treatment with a psychiatric provider, establishes routine therapy appointments, and follow-up with primary care provider. Verify patient understands and agrees to these recommendations. /[id number]/MODL MTDD
--- NOTE | 2018-08-10 14:24 | BCON ---
INTERNAL MEDICINE CONSULTATION REFERRING PHYSICIAN: Jewel So MD REASON FOR REFERRAL: Medical clearance for inpatient behavioral health stay. HISTORY OF PRESENT ILLNESS: This patient was referred from a walk-in mental health clinic to be directly admitted voluntarily to inpatient behavioral health due to feeling depressed and being gravely disabled and unable to take care of himself. He reports that he has had very little motivation to do anything, including not eating, and sleeping on the floor. This has worsened since the summer. He also has a subjective sensation of not getting enough air or not getting enough oxygen, and he says that the air smells stale to him. Otherwise, he is without any acute complaints. PAST MEDICAL HISTORY: 1. Appendicitis. 2. Bipolar disorder. 3. Kidney stones. MEDICATIONS: He was taking escitalopram 10 mg p.o. daily, vitamin B complex 1 p.o. daily, fiber gummies 1 p.o. daily, lamotrigine 300 mg p.o. daily, and methylphenidate 20 mg p.o. b.i.d. ALLERGIES: Listed to cyclobenzaprine, lithium, clindamycin, and penicillin. PAST SURGICAL HISTORY: He has had an appendectomy. SOCIAL HISTORY: He is . He lives alone. He is on Disability and not working. He is a nonsmoker and nondrinker. FAMILY HISTORY: Noncontributory. REVIEW OF SYSTEMS: He denies cough. He denies fevers or chills. He denies upper respiratory infection symptoms. He has not noted wheezing. He has weight loss, and chart review demonstrates an 8.6 kg weight loss since April of this year. He denies nausea, vomiting, constipation, or diarrhea. He denies orthopnea or paroxysmal nocturnal dyspnea. Otherwise, a 10-point review of systems is negative. PHYSICAL EXAM: VITAL SIGNS: Blood pressure is 121/75, heart rate is 73, respiratory rate is 14, oxygen saturation is 96% on room air, temperature is 36.5 degrees centigrade. His weight is 81.2 kg for a body mass index of 26.4. GENERAL: This is a well-nourished, well-developed, overweight-appearing man. Sitting in chair, dressed in street clothes. Cooperative and in no acute distress. HEENT: Extraocular movements are intact. Pupils are equal, round, and reactive to light. Mucous membranes are moist. Dentition is in good condition. He has an uncrowded airway, Mallampati class 2. There is no posterior oropharyngeal mucus. NECK: Supple. HEART: There is a regular rate and rhythm with no murmurs, rubs, or gallops. LUNGS: Clear to auscultation bilaterally. ABDOMEN: Benign. EXTREMITIES: There is no cyanosis, clubbing, or edema. Radial and dorsalis pedis pulses are 2+ bilaterally. NEUROLOGIC: He is alert and oriented x3. Cranial nerves 2 through 12 are grossly intact. There is no focal weakness, and sensation is intact to light touch. ASSESSMENT/RECOMMENDATIONS: 1. Mental health issues pending further evaluation and management per Psychiatry and the mental health team. 2. Subjective dyspnea. His exam does not suggest pneumonia, congestive heart disease, chronic obstructive pulmonary disease, or asthma. Will get a chest x- ray to further evaluate. It may be a component of his psychiatric state. There is also a comprehensive metabolic profile pending, and he can be evaluated with that for elevated carbon dioxide. 3. Weight loss, possibly due to psychiatric condition. I have added a thyroid stimulating hormone to the labs that have already been ordered. I see no medical contraindications to this patient's continued stay on the inpatient behavioral health unit or to any psychiatric medications or procedures. Thank you very much for including me in the care of this patient, and please do not hesitate to contact me or the hospitalist service should there be a need for further medical evaluation. I will follow along regarding lab results and the chest x-ray. /[id number]/MODL MTDD
--- NOTE | 2018-08-10 16:19 | PDMN ---
Medical Necessity Medical necessity: Pt meets IP criteria per OPERATIONS OFFICER AFLOAT & MCG [id number]; est los >2 mn for eval/tx of major depressive disorder w/inability to care for self; admit for further monitoring, safety, crisis stabilization & med management; per H&P & order 08/10/18
[2018-08-10] MEDS: ALBUTEROL 60 PUFFS/8 GM MDI IH PRN (16:47)
[2018-08-10 17:03] LABS: PLATELET COUNT 221 10^3/uL (150-400)
[2018-08-11] MEDS: lamoTRIgine 100 MG TAB PO SCH (08:22)
--- NOTE | 2018-08-11 09:17 | SOAPPROG ---
SOAP Progress Note Assessment/Plan: Assessment: Major Depressive Disorder, Severe. No improvement noted. (see subjective/ objective note). Patient is not safe to discharge at this time as patient continues to exhibit signs of depression, and express depressive symptoms. Patient requires continued inpatient care because of current depression, and requires inpatient level of care to stabilize in order to no longer be a danger to himself. Patient could benefit from continued inpatient hospitalization for crisis stabilization, safety, and medication evaluation. Plan: (1) Psychotropic medications: After reviewing options, risks, and benefits patient agrees to continue current medications. No medication changes at this time as more time is needed to determine ongoing tolerability and efficacy. Plan is to continue to observe patient for response and side effects from medications, and ongoing monitoring and evaluation. (2) Review with patient informed consent and recommendations for psychotropic medication treatment listed below (3) Labs: no additional labs at this time (4) Therapy: continue milieu and group therapy (5) Further investigation including gathering information from patients relatives and review of past case records to inform treatment plan. (6) Safety/Wellness plan and follow-up outpatient appointments to be established prior to discharge. Next steps are for patient to meet with caregiver services home to plan a safe discharge plan and establish outpatient services for ongoing treatment. (7) Confer with inpatient treatment team regarding treatment plan. (8) Legal status: voluntary (9) Consider discharge on Wednesday if patient is in stable condition, safe, and has a safe discharge plan. PSYCHOTROPIC MEDICATION TREATMENT INFORMED CONSENT and RECOMMENDATIONS: Review nature of condition, diagnosis, and prognosis. Review nature and purpose of psychotropic medication treatment. Review type of psychotropic medications being ordered. Review risk and benefits of psychotropic medication treatment. Review probable length of time patient will need to take medications. Review risk and benefits of not undergoing psychotropic medication treatment. Review alternative treatments to psychotropic medications. Review psychotropic medications contraindications, drug-drug interactions, side effects, and importance of reporting any side effects to a psychiatric provider or nurse during inpatient hospitalization, and upon discharge to patients psychiatric outpatient provider, primary care provider, or other health managed care analyst. Review importance of asking a nurse, psychiatric provider, or primary care provider any questions or problems concerning the psychotropic medications. Verify patient understands the information that has been provided, and understands, accepts, and agrees to psychotropic medications. Review patients safety plan and importance of patient to report to staff while hospitalized if patient is ever a danger to self/others, or unable to care for self, and upon discharge, the importance for patient to contact [facility] or [facility], or go to the nearest emergency room, if patient is ever a danger to self/others, or unable to care for self. Recommend that upon discharge patient establish medication management treatment with a psychiatric provider, establishes routine therapy appointments, and follow-up with primary care provider. Verify patient understands and agrees to these recommendations. 08/11/18 09:17 Subjective: Following up with patient for evaluation of depression and safety. Patient reports, "Feeling like I am improving. My goal yesterday was just to be able to sit up, so I am getting there, feel like I have more energy today. Lets check back tomorrow to see how things are going. I do feel like I have improved since coming here." Patient expresses the following psychiatric symptoms severe depression. Patient reports taking medications as prescribed, and describes response to medications as fair. Patient does not report undesirable side effects from the medications, and agrees to continue current medications. Patient reports appetite as good, and reports eating all meals. Patient describes getting 8 hours of sleep. Objective: Vital Signs Temp Pulse Resp BP Pulse Ox 36.7 C 58 L 16 111/58 L 94 08/11/18 06:00 08/11/18 06:00 08/11/18 06:00 08/11/18 06:00 08/11/18 06:00 Laboratory Results 08/10/18 15:10 08/10/18 15:10 NURSING REPORT: Consulted with nursing for update on patients progress in treatment. Nurses report patient is engaged in treatment, is attending groups, slept 9 hours, expresses the following psychiatric symptoms: moderate depression , exhibits the following psychiatric symptoms: flat affect, depressed; is eating all meals, is agreeable to medications and taking as prescribed with no report of side effects, with no s/s of EPS/akathisia, and denies SI/HI, denies A /V hallucinations, and denies delusions. MSE: The patient presents casually dressed and with good hygiene, and looks stated age. Patient is sitting, posture is upright, and position is relaxed. Patient appears awake, alert, and responds appropriately and reasonably during interview. Patient is engaged, relates well to interviewer, and emotional facial expression is appropriate to situation and changes appropriately with topic. Patient is cooperative, makes comfortable eye contact, and movements are voluntary, deliberate, coordinated, and smooth and even with no inappropriate movements. Patient makes laryngeal sounds effortlessly and shares conversation appropriately; pace of conversation is appropriate, and stream of talking is fluent; articulation is clear and understandable; word choice is effortless and appropriate for education level; completes sentences, occasionally pausing to think; rate and volume are appropriate for interview and setting. Patient reports mood as depressed. Patients affect is flat, congruent with mood, and appropriate to speech and circumstances. Patient has linear and logical thinking, with no loose associations, tangential thought, thought blocking, concrete thinking, or any other signs of formal thought disorder. Patient denies suicidal and homicidal ideation, and denies hallucinations and delusions. Patient appears to be a fairly reliable historian with fair judgement and good insight into current condition. Patient has no apparent dysfunction in recent or remote memory noted, and no evidence of gross cognitive dysfunction noted at any point during the interview. - Time Spent With Patient Time Spent With Patient: 25 minutes, patient met with this SHAKE FEEDER individually and with treatment team to discuss treatment plan and goals for hospitalization. - Pending Discharge Pending Discharge Within 24 Hours: No Pending Discharge Within 48 Hours: No ICD10 Worksheet Patient Problems: Problems Problem Status Onset Acute appendicitis Acute Renal colic on right side Acute
[2018-08-11] MEDS: ALBUTEROL 60 PUFFS/8 GM MDI IH PRN (11:00)
[2018-08-11] MEDS: ACETAMINOPHEN 325 MG TAB PO PRN (13:36)
--- NOTE | 2018-08-11 14:07 | ASMTCMCOM ---
CM Note CM Note Notes: Client participated in treatment team meeting today.* Client presents as disorganized, semi-alert, nonsensical at times. However, client is doing better than the previous day. Affect is tangential, with disorganized thought process. Client is open to [facility], and has a projected discharge date of sometime next week.* Date Signed: 08/11/2018 02:07 PM Electronically Signed By:Tj Lance
[2018-08-12] MEDS: lamoTRIgine 100 MG TAB PO SCH (08:33)
--- NOTE | 2018-08-12 09:25 | SOAPPROG ---
SOAP Progress Note Assessment/Plan: Assessment: Major Depressive Disorder, Severe. Slight improvement noted. (see subjective/ objective note). Patient is not safe to discharge at this time as patient continues to exhibit signs of depression, and express depressive symptoms. Patient requires continued inpatient care because of current depression, and requires inpatient level of care to stabilize in order to no longer be a danger to himself. Patient could benefit from continued inpatient hospitalization for crisis stabilization, safety, and medication evaluation. Plan: (1) Psychotropic medications: After reviewing options, risks, and benefits patient agrees to continue current medications. No medication changes at this time as more time is needed to determine ongoing tolerability and efficacy. Plan is to continue to observe patient for response and side effects from medications, and ongoing monitoring and evaluation. (2) Review with patient informed consent and recommendations for psychotropic medication treatment listed below (3) Labs: no additional labs at this time (4) Therapy: continue milieu and group therapy (5) Further investigation including gathering information from patients relatives and review of past case records to inform treatment plan. (6) Safety/Wellness plan and follow-up outpatient appointments to be established prior to discharge. Next steps are for patient to meet with day care supervisor to plan a safe discharge plan and establish outpatient services for ongoing treatment. (7) Confer with inpatient treatment team regarding treatment plan. (8) Legal status: voluntary (9) Consider discharge on Wednesday if patient is in stable condition, safe, and has a safe discharge plan. PSYCHOTROPIC MEDICATION TREATMENT INFORMED CONSENT and RECOMMENDATIONS: Review nature of condition, diagnosis, and prognosis. Review nature and purpose of psychotropic medication treatment. Review type of psychotropic medications being ordered. Review risk and benefits of psychotropic medication treatment. Review probable length of time patient will need to take medications. Review risk and benefits of not undergoing psychotropic medication treatment. Review alternative treatments to psychotropic medications. Review psychotropic medications contraindications, drug-drug interactions, side effects, and importance of reporting any side effects to a psychiatric provider or nurse during inpatient hospitalization, and upon discharge to patients psychiatric outpatient provider, primary care provider, or other health rn transitional care. Review importance of asking a nurse, psychiatric provider, or primary care provider any questions or problems concerning the psychotropic medications. Verify patient understands the information that has been provided, and understands, accepts, and agrees to psychotropic medications. Review patients safety plan and importance of patient to report to staff while hospitalized if patient is ever a danger to self/others, or unable to care for self, and upon discharge, the importance for patient to contact [facility] or [facility], or go to the nearest emergency room, if patient is ever a danger to self/others, or unable to care for self. Recommend that upon discharge patient establish medication management treatment with a psychiatric provider, establishes routine therapy appointments, and follow-up with primary care provider. Verify patient understands and agrees to these recommendations. 08/12/18 09:24 Subjective: Following up with patient for evaluation of depression and safety. Patient reports, "I am feeling better today, still feel pretty depressed." Patient expresses the following psychiatric symptoms severe depression. Patient reports taking medications as prescribed, and describes response to medications as fair. Patient does not report undesirable side effects from the medications , and agrees to continue current medications. Patient reports appetite as good , and reports eating all meals. Patient describes getting 8 hours of sleep. Objective: Vital Signs Temp Pulse Resp BP Pulse Ox 36.4 C 60 16 99/54 L 95 08/12/18 06:00 08/12/18 06:00 08/12/18 06:00 08/12/18 06:00 08/12/18 06:00 Laboratory Results 08/10/18 15:10 08/10/18 15:10 NURSING REPORT: Consulted with nursing for update on patients progress in treatment. Nurses report patient is engaged in treatment, is attending groups, slept 9 hours, expresses the following psychiatric symptoms: moderate depression , exhibits the following psychiatric symptoms: flat affect, depressed; is eating all meals, is agreeable to medications and taking as prescribed with no report of side effects, with no s/s of EPS/akathisia, and denies SI/HI, denies A /V hallucinations, and denies delusions. MSE: The patient presents casually dressed and with good hygiene, and looks stated age. Patient is sitting, posture is upright, and position is relaxed. Patient appears awake, alert, and responds appropriately and reasonably during interview. Patient is engaged, relates well to interviewer, and emotional facial expression is appropriate to situation and changes appropriately with topic. Patient presents brighter today compared to Wednesday and . Patient is cooperative, makes comfortable eye contact, and movements are voluntary, deliberate, coordinated, and smooth and even with no inappropriate movements. Patient makes laryngeal sounds effortlessly and shares conversation appropriately; pace of conversation is appropriate, and stream of talking is fluent; articulation is clear and understandable; word choice is effortless and appropriate for education level; completes sentences, occasionally pausing to think; rate and volume are appropriate for interview and setting. Patient reports mood as depressed. Patients affect is flat, congruent with mood, and appropriate to speech and circumstances. Patient has linear and logical thinking, with no loose associations, tangential thought, thought blocking, concrete thinking, or any other signs of formal thought disorder. Patient denies suicidal and homicidal ideation, and denies hallucinations and delusions. Patient appears to be a fairly reliable historian with fair judgement and good insight into current condition. Patient has no apparent dysfunction in recent or remote memory noted, and no evidence of gross cognitive dysfunction noted at any point during the interview. - Time Spent With Patient Time Spent With Patient: 15 minutes, met with patient individually. - Pending Discharge Pending Discharge Within 24 Hours: No Pending Discharge Within 48 Hours: No ICD10 Worksheet Patient Problems: Problems Problem Status Onset Acute appendicitis Acute Renal colic on right side Acute
--- NOTE | 2018-08-12 14:08 | ASMTCMCOM ---
CM Note CM Note Notes: Pt. reports feeling "okay". Pt. requested to check his phone messages, stating he has "variety of stuff I haven't follow up with". Pt. reports sleeping "well" and eating well. Pt. stated there was a mix up about when he was suppose to get a medication, but this issue has been corrected. Pt. stated "[it's a] challenge being here and challenge being out of here". Pt.. denied SI, HI, AVH and paranoia. Pt. stated wants to make some phone call to setup support for when he leaves the hospital. Pt. spoke about how he has been isolating a lot recently. Pt. presents as alert, somewhat disorganized, polite, with good eye contact and a mostly pleasant demeanor. Staff report pt. sleeping 7 hours and being medication complaint. Date Signed: 08/12/2018 02:07 PM Electronically Signed By:Charisma Nolan
[2018-08-13] MEDS: lamoTRIgine 100 MG TAB PO SCH (08:28)
--- NOTE | 2018-08-13 15:21 | ASMTCMCOM ---
CM Note CM Note Notes: Pt. reports he got his medication correctly today. Pt. stated he had a rough night, but did not elaborate. Pt. discussed talking with Dr. So about ECT and not feeling there was enough good research for him (the pt) to want ECT. Pt. shared about he feels acupuncture has better research than ECT but medicare won't pay for it. Pt. stated he has memory issues, adding he didn't remember eating lunch yesterday, but staff reported he did. Pt. shared about the unit can be "a depressing place". Pt. stated he has a window caser with [facility], Kassidy Rios and stated he would like a f-u appointment with her. Pt. stated he would also like an appointment with his employment counseling at [facility], and with his PCP for breathing issues. Pt. stated "[I] can present like I'm doing really well at the same time, I'm not doing well". Pt. shared how he struggles with self confidence, mental organization and making decisions or choices. Pt. stated "I make obsticals". Pt. denied SI, HI, AVH and paranoia. Pt. presents as alert, disorganized, talkative, flood of ideas, rambling, intellectualizing and with good eye contact. Staff report pt. sleeping 8 hours and being medication compliant. Date Signed: 08/13/2018 03:20 PM Electronically Signed By:Charisma Nolan
--- NOTE | 2018-08-13 17:45 | SOAPPROG ---
SOAP Progress Note Assessment/Plan: Assessment: Per Uri Dai's note: Assessment: Major Depressive Disorder, Severe. Slight improvement noted. (see subjective/ objective note). Patient is not safe to discharge at this time as patient continues to exhibit signs of depression, and express depressive symptoms. Patient requires continued inpatient care because of current depression, and requires inpatient level of care to stabilize in order to no longer be a danger to himself. Patient could benefit from continued inpatient hospitalization for crisis stabilization, safety, and medication evaluation. Plan: 08/13/18 17:42 1. Patient has brighter affect, laughing today. 2. Wants to leave on Wednesday and return to his own apartment. 3. Will f/u with [facility] providers. Subjective: Patient has brighter affect today, denies any SI/HI. Willing to stay until Wednesday and f/u with [facility]. Objective: Vital Signs Temp Pulse Resp BP Pulse Ox 36.5 C 59 L 16 107/56 L 96 08/13/18 06:00 08/13/18 06:00 08/13/18 06:00 08/13/18 06:00 08/13/18 06:00 Laboratory Results 08/10/18 15:10 08/10/18 15:10 MSE: Affect: Brighter Mood: "OK" TP: Linear TC: Denies SI/HI Insight/ Judgment: Improved - Time Spent With Patient Time Spent With Patient: 15" - Pending Discharge Pending Discharge Within 24 Hours: No Pending Discharge Within 48 Hours: Yes Pending Discharge Date: 08/15/18 (Likely d/c on Wed) Pending Discharge Time: 11:00 ICD10 Worksheet Patient Problems: Problems Problem Status Onset Acute appendicitis Acute Renal colic on right side Acute
[2018-08-13] MEDS: ACETAMINOPHEN 325 MG TAB PO PRN (23:44)
[2018-08-14] MEDS: lamoTRIgine 100 MG TAB PO SCH (08:14)
[2018-08-14] MEDS: ALBUTEROL 60 PUFFS/8 GM MDI IH PRN (10:16)
--- NOTE | 2018-08-14 15:08 | ASMTCMCOM ---
CM Note CM Note Notes: Pt. was eating breakfast when CC met with him. Pt. reports "kind of a struggle today". Pt. stated while in the hospital he has been isolating less, eating and sleeping regularly, and having less issues with his breathing. Pt. stated his breathing has improved but believes this is due to his new routine. Pt. stated "feel like can't access feeling good in my heart". Pt. stated "part of feeling okay has to include socializing". Pt. stated in his current phase of depression, "don't have the energy to put into suicidality". Pt. stated recently suicidality has become a "common feeling". Pt. stated when things are going well, he connects with yoga and meditation, and feels functional. Pt. stated he usually does well for 2-3 months and then pt stated "I try too hard habitually in a phase pattern" and things become negative again. Pt. stated his low times can last "three or more months". Pt. denied SI, HI, AVH and paranoia. Pt. stated this is his first positive hospitalization and named helpful staff. Pt. presents as alert, talkative, over intellectualizing good eye contact and a mostly pleasant demeanor. Staff report pt. sleeping 8 hours and being medication compliant. Date Signed: 08/14/2018 03:07 PM Electronically Signed By:Charisma Nolan
--- NOTE | 2018-08-14 18:52 | SOAPPROG ---
SOAP Progress Note Assessment/Plan: Assessment: Per Uri Dai's note: Assessment: Major Depressive Disorder, Severe. Slight improvement noted. (see subjective/ objective note). Patient is not safe to discharge at this time as patient continues to exhibit signs of depression, and express depressive symptoms. Patient requires continued inpatient care because of current depression, and requires inpatient level of care to stabilize in order to no longer be a danger to himself. Patient could benefit from continued inpatient hospitalization for crisis stabilization, safety, and medication evaluation. Plan: 08/13/18 17:42 1. Patient has brighter affect, laughing today. 2. Wants to leave on Wednesday and return to his own apartment. 3. Will f/u with [facility] providers. 08/14/18 18:49 1. Pressured speech, difficult to interrupt. 2. Arguments with one particular male peer on unit. Otherwise, pleasant and cooperative. 3. Confirm f/u appts at [facility] prior to d/c. Subjective: Continues to make origami objects relentlessly. Told RN and CC this was the "best hospital experience" he's ever had. He feel that group therapy has been "very helpful," especially the MARINO talks in group. He denies any SI/HI. Objective: Vital Signs Temp Pulse Resp BP Pulse Ox 36.5 C 61 16 124/63 H 94 08/14/18 06:00 08/14/18 06:00 08/14/18 06:00 08/14/18 06:00 08/14/18 06:00 Laboratory Results 08/10/18 15:10 08/10/18 15:10 MSE: Affect: Intense Mood: "OK" TP: Tangential TC: Denies any SI/HI Insight /Judgment: Poor - Time Spent With Patient Time Spent With Patient: 15" - Pending Discharge Pending Discharge Within 24 Hours: Yes Pending Discharge Date: 08/15/18 (Possible d/c on Wednesday) Pending Discharge Time: 11:00 ICD10 Worksheet Patient Problems: Problems Problem Status Onset Acute appendicitis Acute Renal colic on right side Acute
[2018-08-15] MEDS: ALBUTEROL 60 PUFFS/8 GM MDI IH PRN ×2 (01:50→08:47)
[2018-08-15 07:04] VITALS: BP 104/54
[2018-08-15] MEDS: lamoTRIgine 100 MG TAB PO SCH (08:34)
--- NOTE | 2018-08-15 09:38 | BDS ---
REASON FOR ADMISSION: The patient was admitted directly from [facility] on a voluntary basis due to increased depression and suicidal ideation. Patient was admitted for safety, crisis stabilization, and medication management. ADMITTING DIAGNOSIS: Major depressive disorder, severe, refractory, treatment resistant. ADMISSION PHYSICAL EXAM: The patient was seen on 08/10/[address] Thibodeaux for medical clearance for inpatient Behavioral Health stay. The patient was medically cleared for inpatient Behavioral Health stay and treatment. Dr. Thibodeaux reported he saw no medical contraindications to the patient's continued stay on the inpatient behavioral health unit or to any psychiatric medications or procedures. For further details, please refer to Dr. Thibodeaux's internal medicine consultation note dated 08/10/2018. ADMISSION LABS: From 08/10/2018, CBC was within normal limits. BMP from 2017, within normal limits. Hemoglobin A1c from 08/10/2018, within normal limits at 5.1. Liver function from 08/10/2018, within normal limits. Lipid panel from 08/10/2018, within normal limits, except triglycerides were elevated at 161, LDL cholesterol calculated was elevated at 119, VLDL cholesterol was elevated at 32, and non-HDL cholesterol was elevated at 151. HDL cholesterol is low at 39. Toxicology screen from 08/10/2018, was negative for all substances screened. MAJOR PROCEDURES OR TESTS: The patient had a chest x-ray on 08/10/2018. Findings included lung volumes are prominent, the chronic and recurrent bronchial wall thickening, lungs clear, without infiltrate or consolidation. Heart size and pulmonary vascularity are normal. No adenopathy or mass lesion. No pleural effusion or pneumothorax, stable compression abnormalities of T7 and T8. No new compressions have developed. The bones are otherwise unremarkable for age. HOSPITAL COURSE: The most prominent symptoms and behaviors while the patient was here were patient's report of severe depression. The patient presented flat and withdrawn at time of admission. Treatment modalities utilized were milieu and group therapy. The patient's outpatient medications were continued, including methylphenidate 20 mg at 0900 and 20 mg at 1000, each of these doses daily and scheduled. Medication was tolerated, with no report of side effects and with good response, notably for cognitive slowing due to depression. Lamictal 300 mg p.o. daily was continued and was tolerated with no report of side effects and with good response. The patient has improved considerably, with no signs of psychiatric symptoms at discharge, and patient reports improved depression from severe at time of admission to [id number] at time of discharge. The patient reports he has improved since admission, states to be in stable condition, feels safe to discharge, and he contracts for safety. Patient's response to treatment was good. There were no adverse or unexpected results of treatment. The patient was safe throughout his stay, active in treatment, engaged in groups, and was appropriate with staff and other patients. The patient met with the treatment team prior to discharge to assess readiness to discharge and review discharge plan. The treatment team consensus is the patient is in stable condition, has a safe discharge plan, and is ready to discharge today. CONDITION ON DISCHARGE: Patient is in stable condition and is no longer a danger to self or others, and is not gravely disabled due to mental illness. Patient is no longer in need of inpatient level of care, and can be safely and effectively treated within the community. The patients level of risk at time of discharge is low. MSE: The patient is casually dressed and with good hygiene , and looks stated age. Patient is sitting, posture is upright, and position is relaxed. Patient appears awake, alert, and responds appropriately and reasonably during interview. Patient is engaged, relates well to interviewer, and emotional facial expression is appropriate to situation and changes appropriately with topic. Patient is cooperative, makes comfortable eye contact , and movements are voluntary, deliberate, coordinated, and smooth and even with no inappropriate movements. Patient makes laryngeal sounds effortlessly and shares conversation appropriately; pace of conversation is appropriate, and stream of talking is fluent; articulation is clear and understandable; word choice is effortless and appropriate for education level; completes sentences, occasionally pausing to think; rate and volume are appropriate for interview and setting. Patient reports mood as euthymic. Patients affect is stable with full variable range, congruent with mood, and appropriate to speech and circumstances. Patient has linear and logical thinking, with no loose associations, tangential thought, thought blocking, concrete thinking, or any other signs of formal thought disorder. Patient denies suicidal and homicidal ideation, and denies hallucinations and delusions. Patient appears to be a reliable historian with sound judgement and good insight into current condition. Patient has no apparent dysfunction in recent or remote memory noted , and no evidence of gross cognitive dysfunction noted at any point during the interview. DISCHARGE DIAGNOSIS: Major depressive disorder, severe, refractory, treatment resistant. CURRENT MEDICATIONS: After reviewing options, risks and benefits with the patient, the patient agrees to continue current medications: Methylphenidate 20 mg p.o. daily at 0900 and 1000 and Lamictal 300 mg po QD. The patient reports at time of discharge that he has prescriptions of these medications by his outpatient provider and plans to follow up with his outpatient psychiatric provider for further medication evaluation and prescriptions. Medications are reviewed with the patient at time of discharge to ensure accuracy and patient understanding. DISPOSITION: Patient left the hospital independently and voluntarily and plans to return home and follow up with his outpatient psychiatrist and [facility]. FOLLOWUP: death clearance coordinator reports the appropriate outpatient follow-up services have been established and outpatient appointments have been scheduled. The patient received written instructions with times and dates of outpatient follow-up appointments. The following follow-up recommendations were provided to the patient at discharge: Continue psychotropic medications as prescribed and attend appointments as scheduled. Report any side effects to a psychiatric outpatient provider, a primary care provider, or other health career technical education instructor. Address any questions or problems concerning the psychotropic medications with a psychiatric outpatient provider, a primary care provider, or other health career technical education instructor. Contact [facility] or [facility], or go to the nearest emergency room, if you are ever a danger to yourself/others, or unable to care for yourself. As soon as possible, establish a routine medication management treatment with a psychiatric provider, establish routine therapy appointments, and follow-up with a primary care provider. LEGAL COURSE: The patient was admitted voluntarily and patient discharged today independently and voluntarily. ATTITUDE AT TIME OF DISCHARGE: The patients attitude was positive at time of discharge, and patient reports looking forward to discharging today. The patient reports he feels safe to discharge, is no longer a danger to himself or others, is in stable condition, and contracts for safety. Patient states he will continue medications as prescribed, and establish medication management treatment with an outpatient provider after discharge. Patient reports he understands the information that has been provided to him,, and he understands, accepts, and agrees to psychotropic medications. Patient describes internal protective factors as the coping skills he has learned while hospitalized here, and he plans to continue to practice these coping skills after discharge. LABS AND STUDIES: There were no pending labs or studies at time of discharge. ADVANCE DIRECTIVES: There were no advance directives on file, and patient was full code during this hospitalization. The following psychotropic medication treatment informed consent and recommendations were provided to the patient at time of discharge. Patient reports he understands, accepts, and agrees to the information that has been provided. PSYCHOTROPIC MEDICATION TREATMENT INFORMED CONSENT and RECOMMENDATIONS: Review nature of condition, diagnosis, and prognosis. Review nature and purpose of psychotropic medication treatment. Review type of psychotropic medications being prescribed. Review risk and benefits of psychotropic medication treatment. Review probable length of time will need to take medications. Review risk and benefits of not undergoing psychotropic medication treatment. Review alternative treatments to psychotropic medications. Review psychotropic medications contraindications, side effects, and importance of reporting any side effects to a psychiatric provider, primary care provider, or other health career technical education instructor. Review importance of asking a psychiatric provider or primary care provider any questions or problems concerning the psychotropic medications. Review safety plan and the importance to contact [facility] or [facility] , or go to the nearest emergency room, if ever a danger to yourself/others, or unable to care for yourself. Recommend upon discharge to establish routine medication management treatment with a psychiatric provider, establish routine therapy appointments, and follow-up with a primary care provider. Verify patient understands, accepts, and agrees to the information that has been provided. /[id number]/MODL MTDD
--- NOTE | 2018-08-15 14:33 | ASMTBHDC ---
Notes Note: Notes: Pt. is scheduled to discharge today. Pt. attended the treatment team meeting this morning. Pt. stated he can get himself to his follow up appointments. Pt. stated his car is at the [facility] across the street from the unit. Pt. stated his brother dropped off the keys for the pt. CC confirmed the keys are in pt's property. Pt.'s follow up appointments are: [facility] [address] [place] [address] Next Appointment: Wednesday (08/17/18) at 8:15am, check in at 8:00am with Dr. Rivera Next Appointment: August (08/18/18) at 10:30am, check in at 10:15am with Kassidy Rios Date Signed: 08/15/2018 02:32 PM Electronically Signed By:Charisma Nolan
== END 2018-08-15 17:46 | disposition home or self-care (01) | DRG 885 ==
LOC: BBEH 10:39
PROVIDERS: ADMIT Psychiatry & Neurology Psychiatry; ATTEND Psychiatry & Neurology Psychiatry
DX: F33.3 Major depressive disorder, recurrent, severe with psychotic symptoms (principal); R06.00 Dyspnea, unspecified; R63.4 Abnormal weight loss; Z23 Encounter for immunization
CPT/HCPCS: 80307; G0008; G0480

== ENCOUNTER 2018-09-04 17:16 | Emergency (ER) | payer OTHER, MEDICAID ==
--- NOTE | 2018-09-04 17:47 | EDPHY ---
H & P Stated Complaint: Saw PCP last for feeling SOB and shakey;wants futher eval Time Seen by Provider: 09/04/18 17:38 HPI/ROS: CHIEF COMPLAINT: Shaky on the inside HISTORY OF PRESENT ILLNESS: The patient is a 57-year-old man with history of depression and borderline personality disorder who comes to the emergency department complaining of feeling nervous, chills and shakiness on the inside. He states that he has had the symptoms since . At that time he saw his primary care who suggested that it was anxiety. He also reports a long history of all factor hallucinations and a sensation of shortness of breath. He has been checked for this several times and states that no one has found any abnormalities in his lungs and no hypoxia. He takes Lamictal and night but does not have any medication that he takes p.r.n. for anxiety. No fevers. No sore throat. No abdominal pain. No rashes pain. He denies chest pain or palpitations. Severity: Moderate Modifying factors: None REVIEW OF SYSTEMS: Constitutional: denies: chills, fever, recent illness, recent injury EENTM: denies: blurred vision, double vision, nose congestion Respiratory: denies: cough, shortness of breath Cardiac: denies: chest pain, irregular heart rate, lightheadedness, palpitations Gastrointestinal/Abdominal: denies: abdominal pain, diarrhea, nausea, vomiting, blood streaked stools Genitourinary: denies: dysuria, frequency, hematuria, pain Musculoskeletal: denies: joint pain, muscle pain Skin: denies: lesions, rash, jaundice, bruising Neurological: denies: headache, numbness, paresthesia, tingling, dizziness, weakness Hematologic/Lymphatic: denies: blood clots, easy bleeding, easy bruising Immunologic/allergic: denies: HIV/AIDS, transplant 10 systems reviewed and negative except as noted EXAM: GENERAL: Well-appearing, well-nourished and in no acute distress. HEAD: Atraumatic, normocephalic. EYES: Pupils equal round and reactive to light, extraocular movements intact, sclera anicteric, conjunctiva are normal. ENT: TMs normal, nares patent, oropharynx clear without exudates. Moist mucous membranes. NECK: Normal range of motion, supple without lymphadenopathy or JVD. LUNGS: Breath sounds clear to auscultation bilaterally and equal. No wheezes rales or rhonchi. HEART: Regular rate and rhythm without murmurs, rubs or gallops. ABDOMEN: Soft, nontender, normoactive bowel sounds. No guarding, no rebound. No masses appreciated. BACK: No CVA tenderness, no spinal tenderness, step-offs or deformities EXTREMITIES: Normal range of motion, no pitting or edema. No clubbing or cyanosis. NEUROLOGICAL: No tremors, Cranial nerves II through XII grossly intact. Normal speech, normal gait. 5/5 strength, normal movement in all extremities, normal sensation, normal reflexes PSYCH: Normal mood, normal affect. SKIN: Warm, dry, normal turgor, no visible rashes or lesions. Source: Patient Exam Limitations: No limitations - Personal History Current Tetanus Diphtheria and Acellular Pertussis (TDAP): Yes Tetanus Vaccine Date: < 10 yrs - Medical/Surgical History Hx Asthma: No Hx Chronic Respiratory Disease: No Hx Diabetes: No Hx Cardiac Disease: No Hx Renal Disease: No Hx Cirrhosis: No Hx Alcoholism: No Hx HIV/AIDS: No Hx Splenectomy or Spleen Trauma: No Other PMH: PMH: Depression, cholecystectomy (2012), kidney stones, bipolar, OCD , borderline personality. Self caths daily for urethral stricture. R) knee orthoscopic surgery to repair miniscus tear (12/2017). R) shoulder rotator cuff surgery (2002). Appendectomy (05/2018). - Family History Significant Family History: No pertinent family hx - Social History Smoking Status: Never smoked Alcohol Use: None Drug Use: None Constitutional: Initial Vital Signs Temperature (C) 36.5 C 09/04/18 17:20 Heart Rate 84 09/04/18 17:20 Respiratory Rate 18 09/04/18 17:20 Blood Pressure 152/97 H 09/04/18 17:20 O2 Sat (%) 94 09/04/18 17:20 O2 Delivery Mode Room Air Allergies/Adverse Reactions: cyclobenzaprine [From Flexeril] Allergy (Intermediate, Verified 09/04/18 17:20) Other-Enter Comments lithium [Broussard] Allergy (Intermediate, Verified 09/04/18 17:20) Other-Enter Comments clindamycin Allergy (Unknown, Verified 09/04/18 17:20) Unknown Penicillins Allergy (Unknown, Verified 09/04/18 17:20) as child Home Medications: Medication Instructions Recorded Methylphenidate HCl [Ritalin 20mg 20 mg PO BID@08,15 #0 09/02/17 (*)] Inulin/Chromium Picolinate [Fiber 1 each PO DAILY 05/07/18 Gummies] Vitamin B Complex [Vitamin B 1 each PO DAILY 05/07/18 Complex (OTC)] lamoTRIgine [Lamictal] 300 mg PO DAILY 05/07/18 Acetaminophen [Tylenol 325mg (*)] 650 mg PO Q4HRS PRN tab 08/15/18 Albuterol [Proventil Inhaler HFA 2 puffs IH Q4HRS PRN mdi 08/15/18 (*)] Medical Decision Making - Diagnostics EKG Interpretation: An EKG obtained and was read and documented in trace view. Please see trace view for full reading and report. Sinus rhythm, no acute ischemic changes Imaging Results: Imaging Impressions Chest X-Ray 09/04/18 18:58 Impression: Negative chest. Underlying hyperinflation. Imaging: Discussed imaging studies w/ calliope player Radiologist ED Course/Re-evaluation: 7:00 p.m. the patient states that he is not feeling much different after Ativan. He does feel reassured by his vital signs here. We had a long discussion. He he believes that this is primarily the anxiety related. He states that sometimes it feels like he is walking on a trampoline and that the ground is soft. I offered imaging and lab work which she accepted. I did offer to have him speak with the psychologist but he declines. He denies suicidality. I do not think he is gravely disabled. 8:00 p.m. the patient is doing well. He states he still feels anxious on the inside. His lab work and x-ray are reassuring. He feels safe to go home. He did switch medications 2 weeks ago and this may be contributing to his symptoms. He will follow up with psychiatrist as well as primary care doctor. We discussed indications for returning to the emergency department. Differential Diagnosis: Partial list of the Differential diagnosis considered include but were not limited to; anxiety, arrhythmia, withdrawal, medication reaction and although unlikely based on the history and physical exam, I also considered infection, acute coronary disease, pneumonia, pneumothorax, abdominal infection. I discussed these differential diagnoses and the plan with the patient as well as the usual and expected course. The patient understands that the diagnosis is provisional and that in medicine we are not always correct and that further workup is often warranted. Usual and customary warnings were given. All of the patient's questions were answered. The patient was instructed to return to the emergency department should the symptoms at all worsen or return, otherwise to followup with the physician as we discussed. - Data Points Laboratory Results: Laboratory Results 09/04/18 19:11 09/04/18 19:11 09/04/18 09/04/18 09/04/18 19:17 19:11 19:11 WBC RBC Hgb Hct MCV MCH MCHC RDW Plt Count MPV Neut % (Auto) Lymph % (Auto) [place] % (Auto) Eos % (Auto) Baso % (Auto) Nucleat RBC Rel Count Absolute Neuts (auto) Absolute Lymphs (auto) Absolute Monos (auto) Absolute Eos (auto) Absolute Basos (auto) Absolute Nucleated RBC Immature Gran % Immature Gran # D-Dimer < 0.27 ug/mLFEU ug/mLFEU (0.00-0.50) Sodium 139 mEq/L mEq/L (135-145) Potassium 4.3 mEq/L mEq/L (3.3-5.0) Chloride 103 mEq/L mEq/L (97-110) Carbon Dioxide 27 mEq/l mEq/l (22-31) Anion Gap 9 mEq/L mEq/L (6-14) BUN 9 mg/dL mg/dL (7-23) Creatinine 1.0 mg/dL mg/dL (0.7-1.3) Estimated GFR > 60 Glucose 91 mg/dL mg/dL (70-100) Calcium 10.1 mg/dL mg/dL (8.5-10.4) POC Troponin I 0.00 ng/mL ng/mL (0.00-0.08) 09/04/18 19:11 WBC 7.13 10^3/uL 10^3/uL (3.80-9.50) RBC 4.80 10^6/uL 10^6/uL (4.40-6.38) Hgb 15.6 g/dL g/dL (13.7-17.5) Hct 44.1 % % (40.0-51.0) MCV 91.9 fL fL (81.5-99.8) MCH 32.5 pg pg (27.9-34.1) MCHC 35.4 g/dL g/dL (32.4-36.7) RDW 11.8 % % (11.5-15.2) Plt Count 225 10^3/uL 10^3/uL (150-400) MPV 10.2 fL fL (8.7-11.7) Neut % (Auto) 62.1 % % (39.3-74.2) Lymph % (Auto) 29.0 % % (15.0-45.0) [place] % (Auto) 6.6 % % (4.5-13.0) Eos % (Auto) 1.3 % % (0.6-7.6) Baso % (Auto) 0.7 % % (0.3-1.7) Nucleat RBC Rel Count 0.0 % % (0.0-0.2) Absolute Neuts (auto) 4.43 10^3/uL 10^3/uL (1.70-6.50) Absolute Lymphs (auto) 2.07 10^3/uL 10^3/uL (1.00-3.00) Absolute Monos (auto) 0.47 10^3/uL 10^3/uL (0.30-0.80) Absolute Eos (auto) 0.09 10^3/uL 10^3/uL (0.03-0.40) Absolute Basos (auto) 0.05 10^3/uL 10^3/uL (0.02-0.10) Absolute Nucleated RBC 0.00 10^3/uL 10^3/uL (0-0.01) Immature Gran % 0.3 % % (0.0-1.1) Immature Gran # 0.02 10^3/uL 10^3/uL (0.00-0.10) D-Dimer Sodium Potassium Chloride Carbon Dioxide Anion Gap BUN Creatinine Estimated GFR Glucose Calcium POC Troponin I Medications Given: Discontinued Medications Sodium Chloride (Ns) 1,000 mls @ 0 mls/hr IV EDNOW ONE; Wide Open PRN Reason: Protocol Stop: 09/04/18 18:59 Last Admin: 09/04/18 19:11 Dose: 1,000 mls Lorazepam (Ativan) 1 mg PO EDNOW ONE Stop: 09/04/18 17:49 Last Admin: 09/04/18 17:59 Dose: 1 mg Point of Care Test Results: Chemistry 09/04/18 19:17 POC Troponin I 0.00 ng/mL ng/mL (0.00-0.08) Departure - Departure Disposition: Home, Routine, Self-Care Clinical Impression: Anxiety about health Condition: Fair Instructions: Anxiolysis in Adults (ED) Referrals: Renee Fink MD [Primary Care Provider] - 2-3 days, call for appt.
[2018-09-04] MEDS ORDERED: LORazepam 1 MG TAB PO ONE (17:48)
--- NOTE | 2018-09-04 18:02 | CPEKG ---
Test Reason : OPEN Blood Pressure : / mmHG Vent. Rate : 070 BPM Atrial Rate : 070 BPM P-R Int : 145 ms QRS Dur : 095 ms QT Int : 365 ms P-R-T Axes : 065 011 047 degrees QTc Int : 394 ms Sinus rhythm Abnormal R-wave progression, early transition Confirmed by Ramírez Angeles ([id number]) on 09/04/2018 6:02:11 PM Referred By: Confirmed By:Ramírez Angeles
[2018-09-04] MEDS ORDERED: NS 1,000 ML IV ONE (18:58)
[2018-09-04 19:24] LABS: PLATELET COUNT 225 10^3/uL (150-400)
[2018-09-04 20:17] VITALS: BP 143/91
== END 2018-09-04 20:16 | disposition home or self-care (01) ==
DX: F41.9 Anxiety disorder, unspecified (principal)
CPT/HCPCS: 84484-PO